=== PATIENT | female | born 1990 | race Caucasian/White ===

== ENCOUNTER 2017-02-21 07:39 | Observation (INO) | payer MEDICARE, MEDICAID ==
[~2017-02-21] VITALS: Ht 170.2 cm; Wt 72.0 kg
[~2017-02-21 07:39] MED LIST: DIVA-68 PO
[2017-02-21] MEDS ORDERED: LORazepam 1MG TABLET ONE (08:12)
[2017-02-21] MEDS ORDERED: LORazepam 1MG TABLET PO ONE (08:30)
[2017-02-21 08:44] LABS: ASPARTATE AMINO TRANSFERASE 17 U/L (15-37); BLOOD UREA NITROGEN 7 mg/dL (7-18)
[2017-02-21 08:47] LABS: ACETAMINOPHEN < 2 mcg/mL (10-30)
[2017-02-21 15:24] LABS: HCG UR OBC PASS
[2017-02-21 15:49] LABS: DAU SCREEN DISCLAIMER
[2017-02-21] MEDS ORDERED: ACETAMINOPHEN 325 MG TABLET PO PRN (19:00)
[2017-02-21] MEDS ORDERED: ZIPRASIDONE 20 MG INJ IM PRN (19:00)
[2017-02-21] MEDS ORDERED: OLANZAPINE 10 MG INJ IM PRN (19:00)
[2017-02-21] MEDS ORDERED: LORazepam 2 MG/ML, 1ML IM PRN (19:00)
[2017-02-21] MEDS ORDERED: NICOTINE 7 MG/24 HR PATCH.TD24 TD SCH (19:00)
[2017-02-21] MEDS ORDERED: LORazepam 1MG TABLET PO PRN (19:00)
[2017-02-21] MEDS: OLANZAPINE 5 MG TABLET PO SCH (22:32)
[2017-02-21 22:34] VITALS: BP 100/64
[2017-02-22 08:00] VITALS: BP 110/74
[2017-02-22] MEDS: OLANZAPINE 5 MG TABLET PO SCH (08:08)
== END 2017-02-22 16:30 ==
LOC: ED 08:48 → EDIP 12:19 → 3E 22:16
PROVIDERS: ADMIT Internal Medicine; ATTEND Internal Medicine
DX: F20.9 Schizophrenia, unspecified (principal); F22 Delusional disorders; F29 Unspecified psychosis not due to a substance or known physiological condition; F17.200 Nicotine dependence, unspecified, uncomplicated; Z81.8 Family history of other mental and behavioral disorders
CPT/HCPCS: 36415; 80053; 80307; 80329; 81025; 85025; 99285; G0378; G0480

== ENCOUNTER 2017-07-11 14:25 | Emergency (ER) | payer MEDICARE, MEDICAID ==
[~2017-07-11] VITALS: Ht 170.2 cm; Wt 77.0 kg
[2017-07-11 14:29] VITALS: BP 117/87
[2017-07-11] MEDS ORDERED: DIPHENHYDRAMINE 50 MG/ML, 1ML ONE (15:25)
[2017-07-11] MEDS ORDERED: DIPHENHYDRAMINE 50 MG/ML, 1ML IM ONE (15:30)
== END 2017-07-11 17:04 | disposition home or self-care (01) ==
LOC: ED 16:50
DX: R51 Headache (principal)
CPT/HCPCS: 96372; 99283; J1200

== ENCOUNTER 2017-07-28 12:45 | Emergency (ER) | payer MEDICARE, MEDICAID ==
[~2017-07-28] VITALS: Ht 170.2 cm; Wt 79.0 kg
[2017-07-28 13:08] VITALS: BP 119/78
[2017-07-28] MEDS ORDERED: ZIPRASIDONE 20 MG INJ IM ONE ×2 (13:26→13:30)
== END 2017-07-28 15:20 | disposition home or self-care (01) ==
LOC: ED 14:12
DX: F24 Shared psychotic disorder (principal); F20.9 Schizophrenia, unspecified; F15.10 Other stimulant abuse, uncomplicated
CPT/HCPCS: 96372; 99284; J3486

== ENCOUNTER 2017-07-31 13:24 | Emergency (ER) | payer MEDICARE, MEDICAID ==
[~2017-07-31] VITALS: Ht 170.2 cm; Wt 71.3 kg
[2017-07-31 13:35] VITALS: BP 106/71
[2017-07-31] MEDS ORDERED: ZIPRASIDONE 20 MG INJ IM ONE (15:00)
== END 2017-07-31 16:05 | disposition home or self-care (01) ==
LOC: ED 16:00
DX: F22 Delusional disorders (principal); R44.3 Hallucinations, unspecified; F15.10 Other stimulant abuse, uncomplicated; F17.210 Nicotine dependence, cigarettes, uncomplicated
CPT/HCPCS: 96372; 99284; J3486

== ENCOUNTER 2017-08-01 12:13 | Emergency (ER) | payer MEDICARE, MEDICAID ==
[~2017-08-01] VITALS: Ht 170.2 cm; Wt 70.4 kg
[2017-08-01 12:36] VITALS: BP 121/83
== END 2017-08-01 15:05 | disposition home or self-care (01) ==
LOC: ED 13:57
DX: F22 Delusional disorders (principal); F15.10 Other stimulant abuse, uncomplicated; F31.9 Bipolar disorder, unspecified
CPT/HCPCS: 99284

== ENCOUNTER 2017-08-15 17:12 | Emergency (ER) | payer MEDICARE, MEDICAID ==
[~2017-08-15] VITALS: Ht 170.2 cm; Wt 72.0 kg
[2017-08-15 17:47] VITALS: BP 118/63
[2017-08-15] MEDS ORDERED: DIPHENHYDRAMINE 12.5MG/5ML, 10ML UDC PO PRN (18:30)
[2017-08-15] MEDS ORDERED: DIPHENHYDRAMINE 12.5MG/5ML, 10ML UDC ONE (18:39)
== END 2017-08-15 19:36 | disposition home or self-care (01) ==
LOC: ED 18:45 → UNDOADMOB 19:03 → EDIP 19:03 → ED 19:36
DX: F25.0 Schizoaffective disorder, bipolar type (principal)
CPT/HCPCS: 99282

== ENCOUNTER 2017-08-23 13:30 | Emergency (ER) | payer MEDICARE, MEDICAID ==
[~2017-08-23] VITALS: Ht 170.2 cm; Wt 98.0 kg
[2017-08-23] MEDS ORDERED: ONDANSETRON ODT 4 MG PO ONE (14:30)
[2017-08-23 18:40] VITALS: BP 100/57
== END 2017-08-23 18:42 | disposition home or self-care (01) ==
LOC: ED 16:21
DX: F25.9 Schizoaffective disorder, unspecified (principal); F31.9 Bipolar disorder, unspecified
CPT/HCPCS: 99284

== ENCOUNTER 2017-09-10 11:06 | Emergency (ER) | payer MEDICARE, MEDICAID ==
[~2017-09-10] VITALS: Ht 170.2 cm; Wt 72.0 kg
[2017-09-10 11:09] VITALS: BP 124/86
== END 2017-09-10 13:32 | disposition home or self-care (01) ==
LOC: ED 13:25
DX: F20.3 Undifferentiated schizophrenia (principal); F17.200 Nicotine dependence, unspecified, uncomplicated; F41.1 Generalized anxiety disorder; F31.9 Bipolar disorder, unspecified
CPT/HCPCS: 99284

== ENCOUNTER 2017-09-21 13:01 | Emergency (ER) | payer MEDICARE, MEDICAID ==
[~2017-09-21] VITALS: Ht 170.2 cm; Wt 68.4 kg
[2017-09-21 13:18] VITALS: BP 115/81
[2017-09-21] MEDS ORDERED: DIPHENHYDRAMINE 50 MG/ML, 1ML IM ONE (14:30)
[2017-09-21] MEDS ORDERED: DIPHENHYDRAMINE 50 MG/ML, 1ML ONE (14:50)
== END 2017-09-21 16:24 | disposition home or self-care (01) ==
LOC: ED 15:10
DX: F20.89 Other schizophrenia (principal); F20.1 Disorganized schizophrenia; F31.9 Bipolar disorder, unspecified; R56.9 Unspecified convulsions; G89.29 Other chronic pain
CPT/HCPCS: 96372; 99284; J1200

== ENCOUNTER 2017-10-05 19:54 | Emergency (ER) | payer MEDICARE, MEDICAID ==
[~2017-10-05] VITALS: Ht 170.2 cm; Wt 66.4 kg
[2017-10-05 19:59] VITALS: BP 135/86
[2017-10-05 20:46] LABS: BASOPHILS # (AUTO) 0.05 x10^3/uL (0-0.1); BASOPHILS % (AUTO) 0 % (0-1); EOSINOPHILS % (AUTO) 1 % (1-7); LYMPHOCYTES % (AUTO) 15 % (22-44); MD NO; MEAN CORPUSCULAR HEMOGLOBIN 30.8 pg (27.0-34.8); MEAN CORPUSCULAR HGB CONC 33.6 g/dL (32.4-35.8); MEAN CORPUSCULAR VOLUME 91.8 fL (80-100); MEAN PLATELET VOLUME 7.8 fL (7.4-10.4); MONOCYTES # (AUTO) 0.56 x10^3/uL (0.2-0.8); MONOCYTES % (AUTO) 5 % (2-9); NEUTROPHILS % (AUTO) 79 % (42-75); PLATELET COUNT 339 x10^3/uL (130-400); RED BLOOD COUNT 5.11 x10^6/uL (3.82-5.3)
[2017-10-05] MEDS ORDERED: ZIPRASIDONE 20 MG INJ IM ONE ×2 (20:48→21:00)
[2017-10-05 20:57] LABS: ALBUMIN 4.1 g/dL (3.4-5.0); ANION GAP 7 mmol/L (5-15); CALCIUM 9.2 mg/dL (8.5-10.1); CHLORIDE 104 mmol/L (98-107); CREATININE 0.81 mg/dL (0.55-1.02)
[2017-10-05 20:59] LABS: ACETAMINOPHEN < 2 mcg/mL (10-30); SALICYLATE LEVEL < 1.7 mg/dL (2.8-20.0)
[2017-10-05 21:09] LABS: AMPHETAMINE SCREEN, URINE Positive (Negative); BARBITURATE SCREEN, URINE Negative (Negative); BENZODIAZEPINE SCREEN, URINE Negative (Negative); CANNABINOID SCREEN, URINE Negative (Negative); COCAINE SCREEN, URINE Negative (Negative); METHADONE SCREEN, URINE Negative (Negative); OPIATE SCREEN, URINE Negative (Negative)
== END 2017-10-05 21:54 | disposition home or self-care (01) ==
LOC: ED 21:13
DX: F25.9 Schizoaffective disorder, unspecified (principal); F15.10 Other stimulant abuse, uncomplicated; F31.9 Bipolar disorder, unspecified; Z72.9 Problem related to lifestyle, unspecified; Z75.9 Unspecified problem related to medical facilities and other health care; Z79.899 Other long term (current) drug therapy
CPT/HCPCS: 36415; 80048; 80307; 80329; 82040; 84703; 85025; 96372; 99284; J3486; G0480

== ENCOUNTER 2017-11-02 17:08 | Emergency (ER) | payer MEDICARE, MEDICAID ==
[~2017-11-02] VITALS: Ht 170.2 cm; Wt 71.9 kg
[2017-11-02] MEDS ORDERED: DIPHENHYDRAMINE 25 MG CAPSULE ONE (17:49)
[2017-11-02] MEDS ORDERED: DIPHENHYDRAMINE 25 MG CAPSULE PO PRN (18:00)
[2017-11-02 18:16] VITALS: BP 124/78
== END 2017-11-02 18:19 | disposition home or self-care (01) ==
LOC: ED 18:10
DX: F41.9 Anxiety disorder, unspecified (principal); F25.9 Schizoaffective disorder, unspecified; F31.9 Bipolar disorder, unspecified; Z88.8 Allergy status to other drugs, medicaments and biological substances
CPT/HCPCS: 99282; Q0163

== ENCOUNTER 2017-11-03 14:23 | Observation (INO) | payer MEDICARE, MEDICAID ==
[~2017-11-03] VITALS: Ht 170.2 cm; Wt 61.4 kg
[2017-11-03] MEDS ORDERED: ZIPRASIDONE 20 MG INJ IM ONE ×2 (14:40→15:00)
[2017-11-03 14:55] LABS: BASOPHILS # (AUTO) 0.08 x10^3/uL (0-0.1); BASOPHILS % (AUTO) 1 % (0-1); EOSINOPHILS # (AUTO) 0.08 x10^3/uL (0-0.4); EOSINOPHILS % (AUTO) 1 % (1-7); LYMPHOCYTES # (AUTO) 3.71 x10^3/uL (1-3.4); LYMPHOCYTES % (AUTO) 28 % (22-44); MD NO; MEAN CORPUSCULAR HEMOGLOBIN 30.4 pg (27.0-34.8); MEAN CORPUSCULAR HGB CONC 33.6 g/dL (32.4-35.8); MEAN CORPUSCULAR VOLUME 90.4 fL (80-100); MEAN PLATELET VOLUME 7.9 fL (7.4-10.4); MONOCYTES # (AUTO) 1.06 x10^3/uL (0.2-0.8); MONOCYTES % (AUTO) 8 % (2-9); NEUTROPHILS # (AUTO) 8.47 x10^3/uL (1.8-6.8); NEUTROPHILS % (AUTO) 63 % (42-75); PLATELET COUNT 301 x10^3/uL (130-400); RED BLOOD COUNT 4.35 x10^6/uL (3.82-5.3); RED CELL DISTRIBUTION WIDTH 13.9 % (9.6-15.2)
[2017-11-03 14:59] LABS: ALBUMIN 3.9 g/dL (3.4-5.0); ANION GAP 9 mmol/L (5-15); CALCIUM 8.7 mg/dL (8.5-10.1); CHLORIDE 105 mmol/L (98-107); CREATININE 0.75 mg/dL (0.55-1.02)
[2017-11-03 15:00] LABS: SALICYLATE LEVEL < 1.7 mg/dL (2.8-20.0)
[2017-11-03 15:08] LABS: ACETAMINOPHEN < 2 mcg/mL (10-30)
[2017-11-03 15:40] LABS: AMPHETAMINE SCREEN, URINE Positive (Negative); BARBITURATE SCREEN, URINE Negative (Negative); BENZODIAZEPINE SCREEN, URINE Negative (Negative); CANNABINOID SCREEN, URINE Negative (Negative); COCAINE SCREEN, URINE Negative (Negative); METHADONE SCREEN, URINE Negative (Negative); OPIATE SCREEN, URINE Negative (Negative)
[2017-11-03] MEDS ORDERED: ACETAMINOPHEN 325 MG TABLET PO PRN ×2 (16:30→19:30)
[2017-11-03] MEDS ORDERED: ONDANSETRON ODT 4 MG PO PRN (16:30)
[2017-11-03] MEDS ORDERED: NICOTINE 14MG/24 HR PATCH.TD24 ONE (16:41)
[2017-11-03] MEDS ORDERED: POTASSIUM CHLORIDE 20 MEQ TAB.ER.PRT ONE (16:42)
[2017-11-03] MEDS: POTASSIUM CHLORIDE 20 MEQ TAB.ER.PRT PO SCH (16:56)
[2017-11-03] MEDS: NICOTINE 14MG/24 HR PATCH.TD24 TD SCH (16:56)
[2017-11-04] MEDS ORDERED: LORazepam 2 MG/ML, 1ML ONE ×4 (03:25→19:43)
[2017-11-04] MEDS: LORazepam 2 MG/ML, 1ML IM PRN ×4 (03:28→20:21)
[2017-11-04 04:56] LABS: BASOPHILS # (AUTO) 0.05 x10^3/uL (0-0.1); BASOPHILS % (AUTO) 1 % (0-1); EOSINOPHILS # (AUTO) 0.29 x10^3/uL (0-0.4); EOSINOPHILS % (AUTO) 3 % (1-7); LYMPHOCYTES # (AUTO) 3.21 x10^3/uL (1-3.4); LYMPHOCYTES % (AUTO) 35 % (22-44); MD NO; MEAN CORPUSCULAR HEMOGLOBIN 30.5 pg (27.0-34.8); MEAN CORPUSCULAR HGB CONC 33.8 g/dL (32.4-35.8); MEAN CORPUSCULAR VOLUME 90.3 fL (80-100); MEAN PLATELET VOLUME 8.1 fL (7.4-10.4); MONOCYTES # (AUTO) 0.63 x10^3/uL (0.2-0.8); MONOCYTES % (AUTO) 7 % (2-9); NEUTROPHILS # (AUTO) 5.02 x10^3/uL (1.8-6.8); NEUTROPHILS % (AUTO) 55 % (42-75); PLATELET COUNT 312 x10^3/uL (130-400); RED BLOOD COUNT 4.72 x10^6/uL (3.82-5.3); RED CELL DISTRIBUTION WIDTH 13.7 % (9.6-15.2)
[2017-11-04 05:03] LABS: ANION GAP 7 mmol/L (5-15); CALCIUM 8.9 mg/dL (8.5-10.1); CHLORIDE 106 mmol/L (98-107)
[2017-11-04 05:06] LABS: CREATININE 0.71 mg/dL (0.55-1.02)
[2017-11-04] MEDS ORDERED: DIVALPROEX 500 MG TABLET.DR PO SCH (09:00)
[2017-11-04] MEDS ORDERED: ENOXAPARIN 40 MG/0.4 ML ONE (09:19)
[2017-11-04] MEDS ORDERED: POTASSIUM CHLORIDE 20 MEQ TAB.ER.PRT ONE (09:44)
[2017-11-04] MEDS: POTASSIUM CHLORIDE 20 MEQ TAB.ER.PRT PO SCH ×2 (09:53→20:00)
[2017-11-04] MEDS: ENOXAPARIN 40 MG/0.4 ML SQ SCH (10:16)
[2017-11-04 12:42] LABS: MICROSCOPIC INDICATED
[2017-11-04] MEDS ORDERED: NICOTINE 14MG/24 HR PATCH.TD24 ONE (17:54)
[2017-11-04] MEDS: NICOTINE 14MG/24 HR PATCH.TD24 TD SCH (17:57)
[2017-11-04] MEDS ORDERED: OLANZAPINE 5 MG TABLET PO STA (20:37)
[2017-11-04] MEDS ORDERED: LORazepam 1MG TABLET PO STA (20:37)
[2017-11-04] MEDS ORDERED: LORazepam 1MG TABLET ONE (20:52)
[2017-11-04] MEDS ORDERED: OLANZAPINE 5 MG TABLET ONE (20:52)
[2017-11-04] MEDS ORDERED: OLANZAPINE 5 MG TABLET PO PRN (21:00)
[2017-11-04] MEDS ORDERED: LORazepam 2 MG/ML, 1ML IM PRN (21:00)
[2017-11-04] MEDS: GABAPENTIN 100 MG CAPSULE PO SCH (22:30)
[2017-11-04] MEDS ORDERED: OLANZAPINE 10 MG INJ IM PRN (22:30)
[2017-11-04] MEDS: OLANZAPINE 10 MG TABLET PO SCH (22:45)
[2017-11-05] MEDS ORDERED: ENOXAPARIN 40 MG/0.4 ML ONE (13:34)
[2017-11-05] MEDS ORDERED: POTASSIUM CHLORIDE 20 MEQ TAB.ER.PRT ONE (13:35)
[2017-11-05] MEDS ORDERED: OLANZAPINE 10 MG TABLET ONE (13:35)
[2017-11-05] MEDS: ENOXAPARIN 40 MG/0.4 ML SQ SCH (13:43)
[2017-11-05] MEDS: OLANZAPINE 10 MG TABLET PO SCH ×2 (13:43→20:36)
[2017-11-05] MEDS: POTASSIUM CHLORIDE 20 MEQ TAB.ER.PRT PO SCH ×2 (13:44→17:42)
[2017-11-05] MEDS: GABAPENTIN 100 MG CAPSULE PO SCH ×3 (14:00→20:36)
[2017-11-05 17:23] VITALS: BP 83/46
[2017-11-05 19:29] VITALS: BP 102/68
[2017-11-06 07:00] VITALS: BP 103/63
[2017-11-06] MEDS: OLANZAPINE 10 MG TABLET PO SCH ×2 (09:42→20:56)
[2017-11-06] MEDS: GABAPENTIN 100 MG CAPSULE PO SCH ×3 (09:42→20:56)
[2017-11-06] MEDS: ENOXAPARIN 40 MG/0.4 ML SQ SCH (09:42)
[2017-11-06] MEDS: NICOTINE 14MG/24 HR PATCH.TD24 TD SCH (09:43)
[2017-11-06 20:16] VITALS: BP 99/70
[2017-11-07 08:00] VITALS: BP 95/64
[2017-11-07] MEDS: ENOXAPARIN 40 MG/0.4 ML SQ SCH (08:42)
[2017-11-07] MEDS: OLANZAPINE 10 MG TABLET PO SCH ×2 (08:43→20:41)
[2017-11-07] MEDS: GABAPENTIN 100 MG CAPSULE PO SCH ×3 (08:43→20:41)
[2017-11-07] MEDS: NICOTINE 14MG/24 HR PATCH.TD24 TD SCH (08:43)
[2017-11-07 20:14] VITALS: BP 112/77
[2017-11-08 07:03] VITALS: BP 103/69
[2017-11-08] MEDS: GABAPENTIN 100 MG CAPSULE PO SCH (08:34)
[2017-11-08] MEDS: NICOTINE 14MG/24 HR PATCH.TD24 TD SCH (08:35)
[2017-11-08] MEDS: ENOXAPARIN 40 MG/0.4 ML SQ SCH (08:35)
[2017-11-08] MEDS: OLANZAPINE 10 MG TABLET PO SCH (08:35)
== END 2017-11-08 14:47 ==
LOC: ED 15:37 → EDIP 15:38 → INTOOBSV 15:38 → ED 15:53 → 3E 11-05 17:24
PROVIDERS: ADMIT Internal Medicine Pulmonary Disease; ATTEND Hospitalist
DX: F29 Unspecified psychosis not due to a substance or known physiological condition (principal); E87.6 Hypokalemia; D72.829 Elevated white blood cell count, unspecified; F15.10 Other stimulant abuse, uncomplicated; F20.1 Disorganized schizophrenia; F17.200 Nicotine dependence, unspecified, uncomplicated; F31.9 Bipolar disorder, unspecified; F41.1 Generalized anxiety disorder; F99 Mental disorder, not otherwise specified
CPT/HCPCS: 36415; 71045; 80048; 80307; 80329; 81001; 82040; 84703; 85025; 96372; 99285; G0378; J1650; J2060; J3486; G0480

== ENCOUNTER 2017-12-16 11:01 | Emergency (ER) | payer MEDICARE, MEDICAID ==
[~2017-12-16] VITALS: Ht 165.1 cm; Wt 74.1 kg
[2017-12-16] MEDS ORDERED: HALOPERIDOL 5 MG/ML ONE (13:23)
[2017-12-16] MEDS ORDERED: LORazepam 1MG TABLET ONE (13:24)
[2017-12-16] MEDS ORDERED: LORazepam 1MG TABLET PO ONE (13:30)
[2017-12-16] MEDS ORDERED: HALOPERIDOL 5 MG/ML IM ONE (13:30)
[2017-12-16 15:17] VITALS: BP 128/63
== END 2017-12-16 15:32 | disposition home or self-care (01) ==
LOC: ED 12:00
DX: F15.251 Other stimulant dependence with stimulant-induced psychotic disorder with hallucinations (principal); F25.9 Schizoaffective disorder, unspecified; F31.9 Bipolar disorder, unspecified; F41.1 Generalized anxiety disorder
CPT/HCPCS: 96372; 99283; J1630

== ENCOUNTER 2018-01-20 00:42 | Emergency (ER) | payer MEDICARE, MEDICAID ==
[~2018-01-20] VITALS: Ht 172.7 cm; Wt 66.0 kg
[2018-01-20] MEDS ORDERED: LORazepam 1MG TABLET ONE (01:39)
[2018-01-20 01:52] LABS: BASOPHILS # (AUTO) 0.08 x10^3/uL (0-0.1); BASOPHILS % (AUTO) 1 % (0-1); EOSINOPHILS # (AUTO) 0.08 x10^3/uL (0-0.4); EOSINOPHILS % (AUTO) 1 % (1-7); LYMPHOCYTES # (AUTO) 2.74 x10^3/uL (1-3.4); LYMPHOCYTES % (AUTO) 29 % (22-44); MD NO; MEAN CORPUSCULAR HEMOGLOBIN 30.6 pg (27.0-34.8); MEAN CORPUSCULAR HGB CONC 33.5 g/dL (32.4-35.8); MEAN CORPUSCULAR VOLUME 91.3 fL (80-100); MONOCYTES # (AUTO) 0.55 x10^3/uL (0.2-0.8); MONOCYTES % (AUTO) 6 % (2-9); NEUTROPHILS # (AUTO) 6.01 x10^3/uL (1.8-6.8); NEUTROPHILS % (AUTO) 64 % (42-75); PLATELET COUNT 389 x10^3/uL (130-400); RED BLOOD COUNT 4.62 x10^6/uL (3.82-5.3); RED CELL DISTRIBUTION WIDTH 12.7 % (9.6-15.2)
[2018-01-20] MEDS ORDERED: LORazepam 2 MG/ML, 1ML IVPush ONE (02:00)
[2018-01-20 02:03] LABS: ALANINE AMINOTRANSFERASE 23 U/L (12-78); ALBUMIN 4.1 g/dL (3.4-5.0); ANION GAP 8 mmol/L (5-15); CALCIUM 9.2 mg/dL (8.5-10.1); CHLORIDE 108 mmol/L (98-107); CREATININE 0.85 mg/dL (0.55-1.02); SALICYLATE LEVEL 2.4 mg/dL (2.8-20.0)
[2018-01-20 02:05] LABS: ALKALINE PHOSPHATASE 74 U/L (45-117); BILIRUBIN,TOTAL 0.4 mg/dL (0.2-1.0); TOTAL PROTEIN 8.3 g/dL (6.4-8.2)
[2018-01-20 02:08] LABS: ACETAMINOPHEN < 2 mcg/mL (10-30)
[2018-01-20 02:20] LABS: HCG UR SG 1.025 (1.003-1.030)
[2018-01-20 02:30] LABS: AMPHETAMINE SCREEN, URINE Positive (Negative); BARBITURATE SCREEN, URINE Negative (Negative); BENZODIAZEPINE SCREEN, URINE Negative (Negative); CANNABINOID SCREEN, URINE Positive (Negative); COCAINE SCREEN, URINE Negative (Negative); METHADONE SCREEN, URINE Negative (Negative); OPIATE SCREEN, URINE Negative (Negative)
[2018-01-20] MEDS ORDERED: ZIPRASIDONE 20MG CAPSULE ONE (02:44)
[2018-01-20] MEDS ORDERED: ZIPRASIDONE 20MG CAPSULE PO ONE (03:00)
[2018-01-20 03:33] VITALS: BP 114/72
== END 2018-01-20 03:36 | disposition home or self-care (01) ==
LOC: ED 03:30
DX: F15.159 Other stimulant abuse with stimulant-induced psychotic disorder, unspecified (principal); F22 Delusional disorders; F20.9 Schizophrenia, unspecified; F41.9 Anxiety disorder, unspecified; F25.9 Schizoaffective disorder, unspecified; Z79.899 Other long term (current) drug therapy
CPT/HCPCS: 36415; 80053; 80307; 80329; 81025; 85025; 96374; 99284; J2060; G0480

== ENCOUNTER 2018-02-05 17:25 | Emergency (ER) | payer MEDICAID, MEDICARE ==
[~2018-02-05] VITALS: Ht 172.7 cm; Wt 68.5 kg
[2018-02-05 17:27] VITALS: BP 117/79
[2018-02-05 18:51] LABS: BASOPHILS # (AUTO) 0.03 x10^3/uL (0-0.1); BASOPHILS % (AUTO) 0 % (0-1); EOSINOPHILS # (AUTO) 0.18 x10^3/uL (0-0.4); EOSINOPHILS % (AUTO) 2 % (1-7); LYMPHOCYTES # (AUTO) 2.82 x10^3/uL (1-3.4); LYMPHOCYTES % (AUTO) 29 % (22-44); MD NO; MEAN CORPUSCULAR HEMOGLOBIN 30.2 pg (27.0-34.8); MEAN CORPUSCULAR HGB CONC 33.4 g/dL (32.4-35.8); MEAN CORPUSCULAR VOLUME 90.6 fL (80-100); MEAN PLATELET VOLUME 8.3 fL (7.4-10.4); MONOCYTES # (AUTO) 0.67 x10^3/uL (0.2-0.8); MONOCYTES % (AUTO) 7 % (2-9); NEUTROPHILS # (AUTO) 6.17 x10^3/uL (1.8-6.8); NEUTROPHILS % (AUTO) 63 % (42-75); PLATELET COUNT 317 x10^3/uL (130-400); RED BLOOD COUNT 4.85 x10^6/uL (3.82-5.3); RED CELL DISTRIBUTION WIDTH 12.3 % (9.6-15.2)
[2018-02-05 18:53] LABS: AMPHETAMINE SCREEN, URINE Positive (Negative); BARBITURATE SCREEN, URINE Negative (Negative); BENZODIAZEPINE SCREEN, URINE Negative (Negative); CANNABINOID SCREEN, URINE Negative (Negative); COCAINE SCREEN, URINE Negative (Negative); METHADONE SCREEN, URINE Negative (Negative); OPIATE SCREEN, URINE Negative (Negative)
[2018-02-05 19:02] LABS: ALBUMIN 3.6 g/dL (3.4-5.0); ANION GAP 6 mmol/L (5-15); CHLORIDE 106 mmol/L (98-107); CREATININE 0.63 mg/dL (0.55-1.02)
[2018-02-05 19:05] LABS: SALICYLATE LEVEL 5.7 mg/dL (2.8-20.0)
[2018-02-05 19:06] LABS: ACETAMINOPHEN < 2 mcg/mL (10-30)
== END 2018-02-05 20:01 | disposition home or self-care (01) ==
LOC: ED 17:46
DX: F15.959 Other stimulant use, unspecified with stimulant-induced psychotic disorder, unspecified (principal); F31.9 Bipolar disorder, unspecified; Z79.899 Other long term (current) drug therapy
CPT/HCPCS: 36415; 80048; 80307; 80329; 82040; 84703; 85025; 99284; G0480

== ENCOUNTER 2018-03-09 17:26 | Emergency (ER) | payer SELFPAY ==
[~2018-03-09] VITALS: Ht 172.7 cm; Wt 77.9 kg
[~2018-03-09 17:26] MED LIST changes: +DIVA-61 PO; -DIVA-68 PO
[2018-03-09 18:09] LABS: BASOPHILS # (AUTO) 0.02 x10^3/uL (0-0.1); BASOPHILS % (AUTO) 0 % (0-1); EOSINOPHILS # (AUTO) 0.06 x10^3/uL (0-0.4); EOSINOPHILS % (AUTO) 1 % (1-7); LYMPHOCYTES # (AUTO) 2.18 x10^3/uL (1-3.4); LYMPHOCYTES % (AUTO) 18 % (22-44); MD NO; MEAN CORPUSCULAR HGB CONC 33.7 g/dL (32.4-35.8); MEAN CORPUSCULAR VOLUME 88.9 fL (80-100); MEAN PLATELET VOLUME 8.1 fL (7.4-10.4); MONOCYTES # (AUTO) 0.58 x10^3/uL (0.2-0.8); MONOCYTES % (AUTO) 5 % (2-9); NEUTROPHILS # (AUTO) 9.27 x10^3/uL (1.8-6.8); NEUTROPHILS % (AUTO) 77 % (42-75); PLATELET COUNT 316 x10^3/uL (130-400); RED CELL DISTRIBUTION WIDTH 13.9 % (9.6-15.2)
[2018-03-09 18:16] LABS: ALBUMIN 4.1 g/dL (3.4-5.0); ANION GAP 7 mmol/L (5-15); CALCIUM 10.1 mg/dL (8.5-10.1); CHLORIDE 105 mmol/L (98-107); CREATININE 0.85 mg/dL (0.55-1.02)
[2018-03-09] MEDS ORDERED: LORazepam 2 MG/ML, 1ML IVPush ONE (18:30)
[2018-03-09] MEDS ORDERED: SODIUM CHLORIDE 0.9% 1,000ML IVBOLUS ONE ×2 (18:30→20:30)
[2018-03-09] MEDS ORDERED: SODIUM CHLORIDE FLUSH 10ML SYR IVF ONE (18:30)
[2018-03-09] MEDS ORDERED: LORazepam 2 MG/ML, 1ML ONE ×2 (18:41→21:46)
[2018-03-09 19:52] LABS: CULTURE INDICATED? YES; MICROSCOPIC INDICATED
[2018-03-09] MEDS ORDERED: LORazepam 2 MG/ML, 1ML IVPush STA (21:33)
[2018-03-09] MEDS ORDERED: metroNIDAZOLE 500 MG TABLET ONE ×2 (21:47→21:52)
[2018-03-09] MEDS ORDERED: metroNIDAZOLE 500 MG TABLET PO ONE (22:00)
[2018-03-09 23:00] VITALS: BP 134/83
[2018-03-10] MEDS ORDERED: GEODON (11:55)
[2018-03-10] MEDS ORDERED: ZYPREXA (11:55)
== END 2018-03-09 23:37 | disposition home or self-care (01) ==
LOC: ED 20:20
DX: F29 Unspecified psychosis not due to a substance or known physiological condition (principal); A59.03 Trichomonal cystitis and urethritis; F22 Delusional disorders; F20.9 Schizophrenia, unspecified; F15.10 Other stimulant abuse, uncomplicated; F17.200 Nicotine dependence, unspecified, uncomplicated; R82.99 Other abnormal findings in urine
CPT/HCPCS: 36415; 80048; 81001; 82040; 84703; 85025; 87086; 96374; 96376; 99285; J2060; J7030

== ENCOUNTER 2018-03-10 10:34 | Emergency (ER) | payer SELFPAY ==
[~2018-03-10] VITALS: Ht 167.6 cm; Wt 64.0 kg
[2018-03-10] MEDS ORDERED: ZYPREXA (11:55)
[2018-03-10] MEDS ORDERED: GEODON (11:55)
[2018-03-10 13:31] VITALS: BP 131/80
== END 2018-03-10 13:33 | disposition home or self-care (01) ==
LOC: ED 10:39
DX: G89.11 Acute pain due to trauma (principal); M25.561 Pain in right knee; M25.571 Pain in right ankle and joints of right foot; M25.562 Pain in left knee; M25.572 Pain in left ankle and joints of left foot; F23 Brief psychotic disorder; F22 Delusional disorders; W19.XXXA Unspecified fall, initial encounter; Y93.89 Activity, other specified; Y92.410 Unspecified street and highway as the place of occurrence of the external cause; Y99.8 Other external cause status
CPT/HCPCS: 93005; 99284

== ENCOUNTER 2018-03-10 14:25 | Emergency (ER) | payer SELFPAY ==
[~2018-03-10] VITALS: Ht 172.7 cm; Wt 80.0 kg
[~2018-03-10 14:25] MED LIST changes: +GEODON; +ZYPREXA
[2018-03-10] MEDS ORDERED: ACETAMINOPHEN 325 MG TABLET ONE (19:19)
[2018-03-10] MEDS ORDERED: ACETAMINOPHEN 325 MG TABLET PO ONE (19:30)
[2018-03-10 20:44] VITALS: BP 129/95
== END 2018-03-10 20:47 | disposition home or self-care (01) ==
LOC: ED 14:52
DX: F29 Unspecified psychosis not due to a substance or known physiological condition (principal); F17.210 Nicotine dependence, cigarettes, uncomplicated
CPT/HCPCS: 82962; 99283; 99406

== ENCOUNTER 2018-03-14 11:57 | Emergency (ER) | payer SELFPAY ==
[~2018-03-14] VITALS: Ht 180.3 cm; Wt 74.0 kg
[2018-03-14 12:00] VITALS: BP 132/90
== END 2018-03-14 13:53 | disposition home or self-care (01) ==
LOC: ED 12:19
DX: F15.951 Other stimulant use, unspecified with stimulant-induced psychotic disorder with hallucinations (principal); F15.950 Other stimulant use, unspecified with stimulant-induced psychotic disorder with delusions; F31.9 Bipolar disorder, unspecified; M79.672 Pain in left foot; M79.671 Pain in right foot; F25.9 Schizoaffective disorder, unspecified
CPT/HCPCS: 99284

== ENCOUNTER 2018-03-27 20:42 | Emergency (ER) | payer MEDICARE ==
[~2018-03-27] VITALS: Ht 180.3 cm; Wt 65.0 kg
[2018-03-27 20:49] VITALS: BP 110/72
[2018-03-27] MEDS ORDERED: ZIPRASIDONE 20MG CAPSULE ONE (21:19)
[2018-03-27] MEDS ORDERED: ZIPRASIDONE 20MG CAPSULE PO ONE (21:30)
== END 2018-03-27 21:58 | disposition home or self-care (01) ==
LOC: ED 21:52
DX: F15.951 Other stimulant use, unspecified with stimulant-induced psychotic disorder with hallucinations (principal); F31.9 Bipolar disorder, unspecified; F25.9 Schizoaffective disorder, unspecified
CPT/HCPCS: 99284

== ENCOUNTER 2018-03-28 11:32 | Emergency (ER) | payer MEDICARE ==
[~2018-03-28] VITALS: Ht 180.3 cm; Wt 74.4 kg
[2018-03-28 11:37] VITALS: BP 130/80
== END 2018-03-28 14:33 | disposition left against medical advice (07) ==
LOC: ED 14:27
DX: M79.604 Pain in right leg (principal); Z53.21 Procedure and treatment not carried out due to patient leaving prior to being seen by health care provider

== ENCOUNTER 2019-07-04 06:40 | Emergency (ER) | payer MEDICARE, MEDICAID ==
[~2019-07-04] VITALS: Ht 172.7 cm; Wt 89.4 kg
[2019-07-04 06:47] VITALS: BP 130/88
[2019-07-04] MEDS ORDERED: RISPERDAL (07:06)
[2019-07-04] MEDS ORDERED: BENZTROPINE (07:06)
--- NOTE | 2019-07-04 07:28 | NUR ---
PT TO ED FOR BREAST AND PELVIC EXAM. PT STATES SOMEONE, CAN'T RECALL WHO OR WHEN, BUT AT AROUND 4 YEARS OLD, INJECTED "A FEW DROPS OF SILICON OR ESTROGEN INTO EACH BREAST" AND WANTS IT REMOVED. 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 UNABLE TO DETERMINE PTS TRUE EMERGENCY OR REQUEST. CAMPBELL SAINZ TO BS FOR ASSESSMENT AWAITING ORDERS.
== END 2019-07-04 07:49 | disposition home or self-care (01) ==
LOC: MERGE 07:34 → ED 07:34
DX: F22 Delusional disorders (principal); F20.9 Schizophrenia, unspecified
CPT/HCPCS: 99284

== ENCOUNTER 2019-07-06 15:02 | Emergency (ER) | payer MEDICARE, MEDICAID ==
[~2019-07-06] VITALS: Ht 172.7 cm; Wt 88.6 kg
[~2019-07-06 15:02] MED LIST changes: +BENZTROPINE; +RISPERDAL
--- NOTE | 2019-07-06 16:18 | NUR ---
CHARLEY ANNE AT BEDSIDE FOR EVALUATION
[2019-07-06 16:46] LABS: BASOPHILS # (AUTO) 0.04 x10^3/uL (0-0.1); BASOPHILS % (AUTO) 0 % (0-1); EOSINOPHILS % (AUTO) 4 % (1-7); LYMPHOCYTES # (AUTO) 2.76 x10^3/uL (1-3.4); LYMPHOCYTES % (AUTO) 27 % (22-44); MD NO; MEAN CORPUSCULAR HEMOGLOBIN 30.3 pg (27.0-34.8); MEAN CORPUSCULAR HGB CONC 32.8 g/dL (32.4-35.8); MEAN CORPUSCULAR VOLUME 92.4 fL (80-100); MEAN PLATELET VOLUME 8.5 fL (7.4-10.4); MONOCYTES # (AUTO) 0.64 x10^3/uL (0.2-0.8); MONOCYTES % (AUTO) 6 % (2-9); NEUTROPHILS # (AUTO) 6.38 x10^3/uL (1.8-6.8); NEUTROPHILS % (AUTO) 63 % (42-75); PLATELET COUNT 333 x10^3/uL (130-400); RED BLOOD COUNT 4.43 x10^6/uL (3.82-5.3); RED CELL DISTRIBUTION WIDTH 13.8 % (9.6-15.2)
[2019-07-06 16:46] LABS: AMPHETAMINE SCREEN, URINE Positive (Negative); BARBITURATE SCREEN, URINE Negative (Negative); BENZODIAZEPINE SCREEN, URINE Negative (Negative); CANNABINOID SCREEN, URINE Negative (Negative); COCAINE SCREEN, URINE Negative (Negative); METHADONE SCREEN, URINE Negative (Negative); OPIATE SCREEN, URINE Negative (Negative)
[2019-07-06 16:55] LABS: ALBUMIN 3.8 g/dL (3.4-5.0); ANION GAP 6 mmol/L (5-15); CALCIUM 9.5 mg/dL (8.5-10.1); CHLORIDE 105 mmol/L (98-107)
[2019-07-06 16:57] LABS: SALICYLATE LEVEL < 1.7 mg/dL (2.8-20.0)
[2019-07-06 16:58] LABS: ALANINE AMINOTRANSFERASE 20 U/L (12-78); ALKALINE PHOSPHATASE 68 U/L (45-117); BILIRUBIN,TOTAL 0.8 mg/dL (0.2-1.0); CREATININE 0.78 mg/dL (0.55-1.02); TOTAL PROTEIN 7.8 g/dL (6.4-8.2)
--- NOTE | 2019-07-06 17:35 | NUR ---
SNACK OFFERED, NO COMPLAINTS AT THIS TIME, RESTING IN BED
--- NOTE | 2019-07-06 18:43 | NUR ---
REPORT TO JA ARCE
--- NOTE | 2019-07-06 19:09 | NUR ---
PT REQUESTING TO LEAVE. PT NOT SI/HI. PT AOX4. PT HAS PAPERWORK FOR PSYCH AND DRUG REHAB ALREADY. MD INFORMED. PT TBDC
[2019-07-06 19:13] VITALS: BP 119/74
== END 2019-07-06 19:15 | disposition home or self-care (01) ==
LOC: ED 16:36
DX: F20.9 Schizophrenia, unspecified (principal); F22 Delusional disorders
CPT/HCPCS: 36415; 80053; 80307; 85025; 99283

== ENCOUNTER 2019-07-26 19:34 | Emergency (ER) | payer MEDICARE, MEDICAID ==
[~2019-07-26] VITALS: Ht 172.7 cm; Wt 88.8 kg
[2019-07-26 19:42] VITALS: BP 133/85
--- NOTE | 2019-07-26 20:04 | NUR ---
PT IN ROOM AT THIS TIME. PT DENIES ANY SUICIDAL/HOMICIDAL THOUGHTS OR IDEAS. PT HAS FLIGHT OF IDEAS. LOOSE ASSOCIATION OF IDEAS. PROVIDER IN ROOM
== END 2019-07-26 20:38 | disposition home or self-care (01) ==
LOC: ED 20:32
DX: F15.10 Other stimulant abuse, uncomplicated (principal); F41.1 Generalized anxiety disorder; Z00.00 Encounter for general adult medical examination without abnormal findings
CPT/HCPCS: 99281

== ENCOUNTER 2019-07-27 01:22 | Emergency (ER) | payer MEDICARE, MEDICAID ==
[~2019-07-27] VITALS: Ht 172.7 cm; Wt 88.0 kg
[2019-07-27 01:26] VITALS: BP 141/86
== END 2019-07-27 02:28 | disposition home or self-care (01) ==
LOC: ED 01:54
DX: F15.959 Other stimulant use, unspecified with stimulant-induced psychotic disorder, unspecified (principal)
CPT/HCPCS: 99281

== ENCOUNTER 2019-12-26 17:23 | Emergency (ER) | payer MEDICARE, MEDICAID ==
[~2019-12-26] VITALS: Ht 172.7 cm; Wt 90.0 kg
[~2019-12-26 17:23] MED LIST changes: +BENZ1TAB61 PO; +CLON-364 PO; +PALI234D IM; +TRAZ-175 PO
[2019-12-26 17:28] VITALS: BP 124/66
== END 2019-12-26 18:20 | disposition home or self-care (01) ==
LOC: ED 18:00
DX: F15.159 Other stimulant abuse with stimulant-induced psychotic disorder, unspecified (principal); F17.200 Nicotine dependence, unspecified, uncomplicated
CPT/HCPCS: 99281

== ENCOUNTER 2020-02-12 01:53 | Emergency (ER) | payer MEDICARE, MEDICAID ==
[~2020-02-12] VITALS: Ht 172.7 cm; Wt 83.1 kg
--- NOTE | 2020-02-12 02:18 | NUR ---
FIRST CONTACT WITH PT: PT SITTING UP IN [facility] WITH A NOTEPAD. PT STATES THEY "DONT KNOW WHY I AM HERE." PT SPEECH IS RUSHED AND THOUGHTS ARE NOT LINEAR. WORD SALAD NOTED. PT ADMITS TO TAKING METH AND SPEED TODAY. PT STATES "I LIKE THIS PERSON AND NOW I AM JUST ALWAYS THINKING ABOUT THEM, THERES NOTHING ELSE I CAN THINK ABOUT, HAVE YOU HEARD OF THE BESOS WEREWOLF? WELL I TOOK THE PILL FROM THEM AND NOW NEED A STEROID." PT P/W/D, VSS, NAD, APPEARS COMFORTABLE, GIVEN WARM BLANKETS FOR COMFORT. JUSTIN HARRIS AT FOR EVAL AND POC. PT PLACED ON BP, SPO2 MONITORING
[2020-02-12] MEDS ORDERED: LORazepam 1MG TABLET ONE (02:25)
[2020-02-12] MEDS ORDERED: LORazepam 1MG TABLET PO ONE (02:30)
--- NOTE | 2020-02-12 02:30 | NUR ---
PT MEDICATED PER MAR, RESTING IN [facility], DENIES ADDITIONAL NEEDS AT THIS TIME. WCTM.
[2020-02-12 02:37] VITALS: BP 120/82
--- NOTE | 2020-02-12 03:11 | NUR ---
Patient given discharge instructions and they have confirmed that they understand the instructions. Patient ambulatory with steady gait. DENIES ADDITIONAL QUESTIONS OR NEEDS AT THIS TIME. NO BELONGINGS LEFT IN ROOM AT TIME OF DC.
== END 2020-02-12 03:12 | disposition home or self-care (01) ==
LOC: ED 02:58
DX: F15.10 Other stimulant abuse, uncomplicated (principal); F17.210 Nicotine dependence, cigarettes, uncomplicated
CPT/HCPCS: 99283; 99406

== ENCOUNTER 2020-02-14 02:08 | Emergency (ER) | payer MEDICARE, MEDICAID ==
[~2020-02-14] VITALS: Ht 172.7 cm; Wt 83.0 kg
--- NOTE | 2020-02-14 02:40 | NUR ---
LATE ENTRY: BEDSIDE REPORT FROM SARAH RN, AMOL RN. FIRST PT CONTACT: PT LAYING FLAT ON DONISRAZIZA, PT STATES COMING HERE BECAUSE SHES TRYING TO GET SWOLE PT SKIN P/W/D, NAD, VSS, APPEARS COMFORTABLE. TO THIS RN PT STATES SHES HERE BECAUSE SHES TRYING TO BECOME AN PIPELINE DISPATCHER. PT TOLD RN SHE WANTED TO SHOW HER, HER MEDICAL JOURNAL, PT SHOWED RN MAGAZINE COVER. WCTM. PALCED ON BP/SPO2 MONITORING.
[2020-02-14] MEDS ORDERED: LORazepam 1MG TABLET PO ONE (03:00)
[2020-02-14] MEDS ORDERED: LORazepam 1MG TABLET ONE (03:15)
[2020-02-14 03:18] LABS: BASOPHILS # (AUTO) 0.05 x10^3/uL (0-0.1); BASOPHILS % (AUTO) 1 % (0-1); EOSINOPHILS # (AUTO) 0.17 x10^3/uL (0-0.4); EOSINOPHILS % (AUTO) 2 % (1-7); LYMPHOCYTES # (AUTO) 2.54 x10^3/uL (1-3.4); LYMPHOCYTES % (AUTO) 30 % (22-44); MD NO; MEAN CORPUSCULAR HEMOGLOBIN 29.8 pg (27.0-34.8); MEAN CORPUSCULAR HGB CONC 33.6 g/dL (32.4-35.8); MEAN CORPUSCULAR VOLUME 88.8 fL (80-100); MEAN PLATELET VOLUME 8.3 fL (7.4-10.4); MONOCYTES # (AUTO) 0.46 x10^3/uL (0.2-0.8); MONOCYTES % (AUTO) 6 % (2-9); NEUTROPHILS # (AUTO) 5.19 x10^3/uL (1.8-6.8); NEUTROPHILS % (AUTO) 62 % (42-75); PLATELET COUNT 313 x10^3/uL (130-400); RED BLOOD COUNT 4.65 x10^6/uL (3.82-5.3); RED CELL DISTRIBUTION WIDTH 13.4 % (9.6-15.2)
[2020-02-14 03:22] LABS: ALANINE AMINOTRANSFERASE 15 U/L (12-78); ALBUMIN 3.9 g/dL (3.4-5.0); ANION GAP 8 mmol/L (5-15); CALCIUM 8.8 mg/dL (8.5-10.1); CHLORIDE 106 mmol/L (98-107); SALICYLATE LEVEL 2.9 mg/dL (2.8-20.0)
--- NOTE | 2020-02-14 03:27 | NUR ---
PT AMBULATED TO AND FROM BATHROOM WITH A SMOOTH AND STEADY GAIT. UA COLLECTED ADN WALKED TO LAB. PT NAD, VSS, WCTM. WAITING FOR RESULTS
[2020-02-14 03:28] LABS: ALKALINE PHOSPHATASE 60 U/L (45-117); BILIRUBIN,TOTAL 0.3 mg/dL (0.2-1.0); CREATININE 0.79 mg/dL (0.55-1.02); TOTAL PROTEIN 7.6 g/dL (6.4-8.2)
[2020-02-14 03:44] LABS: MICROSCOPIC NOT IND
[2020-02-14 03:47] LABS: FREE T4 (FREE THYROXINE) 1.05 ng/dL (0.76-1.46)
[2020-02-14 03:57] LABS: AMPHETAMINE SCREEN, URINE Positive (Negative); BARBITURATE SCREEN, URINE Negative (Negative); BENZODIAZEPINE SCREEN, URINE Negative (Negative); CANNABINOID SCREEN, URINE Negative (Negative); COCAINE SCREEN, URINE Positive (Negative); METHADONE SCREEN, URINE Negative (Negative); OPIATE SCREEN, URINE Negative (Negative)
--- NOTE | 2020-02-14 04:09 | NUR ---
MT: Telepsych consult initiated.
--- NOTE | 2020-02-14 04:19 | NUR ---
pt sitting on [facility]. states "i need to be home at a certain time," RN informed pt that she needs to stay for her consult for telepsych. pt condition unchanged. VIKA. NAD.
--- NOTE | 2020-02-14 05:32 | NUR ---
pt resting supine on gurney, declines warm blankets at this time. NAD. VSS. P/W/D. WCTM. waiting for psych results.
[2020-02-14 06:44] VITALS: BP 109/71
--- NOTE | 2020-02-14 06:45 | NUR ---
PT LAYING PRONE ON GURNEY, PROPPED UP ON ELBOWS. NO CHANGE IN CONDITION, NAD, VSS. WCTM. PT STATES "I WANNA GO HOME I WAS SUPPOSED TO GO HOME AWHILE AGO." RN INFORMED PT THAT WE ARE WAITING FOR PSYCH CONSULT RESULTS.
--- NOTE | 2020-02-14 06:56 | NUR ---
pt placed on legal hold. pt changed out of belonging (pants, underwear, shoes, sports bra, hat, shirt, pen) all placed in 1/1 bags in locker. pt resting on gutoni, SI precautions in place in room, sitter in line of sight, NAD, P/W/D. pt still having a flight of ideas. Bedside report given to Bernadette ARCE, pt care transferred at this time.
--- NOTE | 2020-02-14 07:03 | NUR ---
assuming pt care at this time. PT RESTING ON GURNEY. NADN. RESPS EQUAL AND UNLABORED. ALL SAFETY MEASURES OBTAINED. SITTER OUTSIDE ROOM.
--- NOTE | 2020-02-14 08:27 | NUR ---
DIET TRAY DELIVERED. NADN. NO NEEDS REQUSTED AT THIS TIME. ALL SAFETY MEASURES OBTAINED.
--- NOTE | 2020-02-14 09:39 | NUR ---
PT CONTINUES TO REST ON GURAZIZA. NADN. RESPS EQUAL AND UNLABORED. ALL SAFETY MEASURES OBTAINED. SITTER AT DOORWAY. PT WITHIN FULL VIEW. WCTM
--- NOTE | 2020-02-14 12:35 | NUR ---
LATE ENTRY FOR 1100 PT CONTINUES TO SLEEP ON GURNEY. NADN. RESPS EQUAL AND UNLABORED. ALL SAFETY ISSUES OBTAINED.
--- NOTE | 2020-02-14 12:35 | NUR ---
REPORT TO CLAUDE ESCOBAR. ALL QUESTIONS ANSWERED.
--- NOTE | 2020-02-14 12:46 | NUR ---
PT TRANSFERRED TO FLOOR. PT LEFT WITH ALL PERSONAL BELONGINGS.
== END 2020-02-14 12:48 ==
LOC: ED 02:45
DX: F15.150 Other stimulant abuse with stimulant-induced psychotic disorder with delusions (principal); F14.10 Cocaine abuse, uncomplicated; Z72.9 Problem related to lifestyle, unspecified; R00.0 Tachycardia, unspecified; F20.9 Schizophrenia, unspecified
CPT/HCPCS: 36415; 80053; 80307; 81003; 84439; 84443; 84703; 85025; 99285

== ENCOUNTER 2020-03-04 16:36 | Emergency (ER) | payer MEDICAID, MEDICARE ==
[~2020-03-04] VITALS: Ht 172.7 cm; Wt 81.0 kg
[~2020-03-04 16:36] MED LIST changes: +ARIP10TA33 PO; +TRAZ50TA66 PO; +ZIPR40CA2 PO
--- NOTE | 2020-03-04 17:00 | NUR ---
PT REPORTS WANTING TO BE ADDRESSED A MALE, SEEKING TO GET SURGERY. PT MAKING INCOHERENT STATEMENTS, FLIGHT OF IDEAS AND WORD SALAD. PT IN BED WITH CON SPO2, BP Q 30 MIN, SIDE RAILS UP X2, CALL LIGHT IN REACH. AWATING MD TO SEE.
[2020-03-04 18:05] VITALS: BP 124/74
== END 2020-03-04 18:08 | disposition home or self-care (01) ==
LOC: ED 17:50
DX: Z72.9 Problem related to lifestyle, unspecified (principal); Z76.0 Encounter for issue of repeat prescription; F17.210 Nicotine dependence, cigarettes, uncomplicated
CPT/HCPCS: 99281; 99406

== ENCOUNTER 2020-03-11 15:23 | Emergency (ER) | payer MEDICARE ==
[~2020-03-11] VITALS: Ht 172.7 cm; Wt 80.5 kg
--- NOTE | 2020-03-11 16:03 | NUR ---
AUTOMATIC PUNCH PRESS OPERATOR: PT SITTING IN CHAIR ON THE WALL AWAITING ROOM, CALM AND COOPERATIVE
--- NOTE | 2020-03-11 16:18 | NUR ---
BEHAVIORAL HEALTH CLINICIAN: UMER ORTIZ TO EVALUATED PATIENT
--- NOTE | 2020-03-11 16:27 | NUR ---
LAUNDRY ROUTE DRIVER: PT GOING TO BE ON LEGAL 1999, PT MOVED TO SECURED ROOM 1
[2020-03-11] MEDS ORDERED: ZIPRASIDONE 40MG CAPSULE PO SCH (16:30)
--- NOTE | 2020-03-11 16:41 | NUR ---
SAFETY PRECAUTIONS IN PLACE, BELONGINGS IN LOCKER
[2020-03-11] MEDS ORDERED: BENZTROPINE 1 MG TABLET ONE (16:44)
[2020-03-11] MEDS ORDERED: ZIPRASIDONE 20MG CAPSULE ONE (16:44)
--- NOTE | 2020-03-11 17:18 | NUR ---
ermd law at bedside for evaluation.
[2020-03-11 17:25] LABS: BASOPHILS # (AUTO) 0.04 x10^3/uL (0-0.1); BASOPHILS % (AUTO) 0 % (0-1); EOSINOPHILS # (AUTO) 0.43 x10^3/uL (0-0.4); EOSINOPHILS % (AUTO) 4 % (1-7); LYMPHOCYTES # (AUTO) 2.46 x10^3/uL (1-3.4); LYMPHOCYTES % (AUTO) 21 % (22-44); MD NO; MEAN CORPUSCULAR HEMOGLOBIN 29.4 pg (27.0-34.8); MEAN CORPUSCULAR VOLUME 89.4 fL (80-100); MEAN PLATELET VOLUME 8.2 fL (7.4-10.4); MONOCYTES # (AUTO) 0.76 x10^3/uL (0.2-0.8); MONOCYTES % (AUTO) 7 % (2-9); NEUTROPHILS # (AUTO) 7.84 x10^3/uL (1.8-6.8); NEUTROPHILS % (AUTO) 68 % (42-75); PLATELET COUNT 324 x10^3/uL (130-400); RED BLOOD COUNT 4.52 x10^6/uL (3.82-5.3); RED CELL DISTRIBUTION WIDTH 13.6 % (9.6-15.2)
[2020-03-11 17:26] LABS: AMPHETAMINE SCREEN, URINE Positive (Negative); BARBITURATE SCREEN, URINE Negative (Negative); BENZODIAZEPINE SCREEN, URINE Negative (Negative); CANNABINOID SCREEN, URINE Negative (Negative); COCAINE SCREEN, URINE Negative (Negative); METHADONE SCREEN, URINE Negative (Negative); OPIATE SCREEN, URINE Negative (Negative)
[2020-03-11 17:37] LABS: ALANINE AMINOTRANSFERASE 16 U/L (12-78); ALBUMIN 3.6 g/dL (3.4-5.0); ANION GAP 6 mmol/L (5-15); CALCIUM 8.3 mg/dL (8.5-10.1); CHLORIDE 107 mmol/L (98-107); CREATININE 0.81 mg/dL (0.55-1.02); SALICYLATE LEVEL 1.7 mg/dL (2.8-20.0)
[2020-03-11 17:42] LABS: ALKALINE PHOSPHATASE 61 U/L (45-117); BILIRUBIN,TOTAL 0.4 mg/dL (0.2-1.0); TOTAL PROTEIN 7.3 g/dL (6.4-8.2)
[2020-03-11 17:47] VITALS: BP 103/67
--- NOTE | 2020-03-11 18:55 | NUR ---
bedside report from Penny ARCE. pt care transferred at this time. Pt resting in gurney on side, even and unlabored respirations, sitter in line of sight, SI precautions inplaced. P/W/D. CHINTM
[2020-03-11] MEDS ORDERED: BENZTROPINE 1 MG TABLET PO SCH (21:00)
== END 2020-03-12 07:59 | disposition other institution (70) ==
LOC: ED 18:28
DX: F23 Brief psychotic disorder (principal); F22 Delusional disorders; R94.31 Abnormal electrocardiogram [ECG] [EKG]; G89.29 Other chronic pain; F17.200 Nicotine dependence, unspecified, uncomplicated
CPT/HCPCS: 36415; 80053; 80307; 84443; 84703; 85025; 93005; 99284

== ENCOUNTER 2020-03-11 18:04 | Inpatient (IN) | payer MEDICARE, MEDICAID ==
[~2020-03-11] VITALS: Ht 167.6 cm; Wt 78.6 kg
[2020-03-11] MEDS ORDERED: POLYETHYLENE GLYCOL 17 GM PACKET PO PRN (19:00)
[2020-03-11] MEDS ORDERED: ONDANSETRON ODT 4 MG PO PRN (19:00)
[2020-03-11] MEDS ORDERED: ACETAMINOPHEN 325 MG TABLET PO PRN (19:00)
[2020-03-11] MEDS ORDERED: BISACODYL 10 MG SUPP PR PRN (19:00)
[2020-03-11] MEDS ORDERED: DOCUSATE 100 MG CAPSULE PO PRN (19:00)
[2020-03-11 21:08] VITALS: BP_SYST 110; BP_DIAS 62; BP_DIAS 64
[2020-03-12 07:15] VITALS: BP 102/62
[2020-03-12] MEDS: BENZTROPINE 1 MG TABLET PO SCH ×2 (09:05→20:35)
[2020-03-12] MEDS: ZIPRASIDONE 40MG CAPSULE PO SCH ×2 (09:05→20:35)
[2020-03-12] MEDS: ARIPIPRAZOLE 10 MG TABLET PO SCH (09:05)
[2020-03-12 19:30] VITALS: BP 0/0
[2020-03-13 07:06] VITALS: BP 96/63
[2020-03-13] MEDS: ARIPIPRAZOLE 10 MG TABLET PO SCH (08:28)
[2020-03-13] MEDS: ZIPRASIDONE 40MG CAPSULE PO SCH ×2 (08:30→20:09)
[2020-03-13] MEDS: BENZTROPINE 1 MG TABLET PO SCH ×2 (08:32→20:09)
[2020-03-13 09:04] LABS: MICROSCOPIC INDICATED
[2020-03-13 19:07] VITALS: BP 108/74
[2020-03-13] MEDS: TRAZODONE 50MG TABLET PO PRN (20:09)
[2020-03-13] MEDS: NITROFURANTOIN (MACROBID) 100 MG CAPSULE PO SCH (20:09)
[2020-03-14 07:12] VITALS: BP 109/76
[2020-03-14] MEDS: NITROFURANTOIN (MACROBID) 100 MG CAPSULE PO SCH ×2 (09:22→20:38)
[2020-03-14] MEDS: ZIPRASIDONE 40MG CAPSULE PO SCH ×2 (09:23→20:38)
[2020-03-14] MEDS: BENZTROPINE 1 MG TABLET PO SCH ×2 (09:23→20:38)
[2020-03-14] MEDS: ARIPIPRAZOLE 10 MG TABLET PO SCH (09:24)
[2020-03-14 20:07] VITALS: BP 101/66
[2020-03-15 07:13] VITALS: BP 107/70
[2020-03-15] MEDS: BENZTROPINE 1 MG TABLET PO SCH ×2 (08:16→19:54)
[2020-03-15] MEDS: ARIPIPRAZOLE 10 MG TABLET PO SCH (08:17)
[2020-03-15] MEDS: NITROFURANTOIN (MACROBID) 100 MG CAPSULE PO SCH (08:17)
[2020-03-15] MEDS: ZIPRASIDONE 40MG CAPSULE PO SCH ×2 (08:17→19:54)
[2020-03-15 12:53] LABS: MICROSCOPIC AUTO
[2020-03-15 19:17] VITALS: BP 117/76
[2020-03-15] MEDS: TRAZODONE 50MG TABLET PO PRN (19:53)
[2020-03-16 07:12] VITALS: BP 109/70
[2020-03-16] MEDS: BENZTROPINE 1 MG TABLET PO SCH ×2 (09:08→20:03)
[2020-03-16] MEDS: ARIPIPRAZOLE 10 MG TABLET PO SCH (09:09)
[2020-03-16] MEDS: ZIPRASIDONE 40MG CAPSULE PO SCH ×2 (09:09→20:03)
[2020-03-16 10:21] LABS: BASOPHILS # (AUTO) 0.04 x10^3/uL (0-0.1); BASOPHILS % (AUTO) 1 % (0-1); EOSINOPHILS # (AUTO) 0.66 x10^3/uL (0-0.4); EOSINOPHILS % (AUTO) 8 % (1-7); LYMPHOCYTES # (AUTO) 2.55 x10^3/uL (1-3.4); LYMPHOCYTES % (AUTO) 29 % (22-44); MD NO; MEAN CORPUSCULAR HEMOGLOBIN 28.7 pg (27.0-34.8); MEAN CORPUSCULAR VOLUME 89.9 fL (80-100); MEAN PLATELET VOLUME 8.1 fL (7.4-10.4); MONOCYTES # (AUTO) 0.37 x10^3/uL (0.2-0.8); MONOCYTES % (AUTO) 4 % (2-9); NEUTROPHILS # (AUTO) 5.11 x10^3/uL (1.8-6.8); NEUTROPHILS % (AUTO) 58 % (42-75); PLATELET COUNT 355 x10^3/uL (130-400); RED CELL DISTRIBUTION WIDTH 13.1 % (9.6-15.2)
[2020-03-16 19:05] VITALS: BP 107/73
[2020-03-17 07:28] VITALS: BP 108/75
[2020-03-17] MEDS: ARIPIPRAZOLE 10 MG TABLET PO SCH (08:44)
[2020-03-17] MEDS: ZIPRASIDONE 40MG CAPSULE PO SCH ×2 (08:45→20:20)
[2020-03-17] MEDS: BENZTROPINE 1 MG TABLET PO SCH ×2 (08:45→20:20)
[2020-03-17 20:00] VITALS: BP 110/80
[2020-03-17] MEDS: TRAZODONE 50MG TABLET PO PRN (20:20)
[2020-03-18 07:30] VITALS: BP 101/71
[2020-03-18] MEDS: BENZTROPINE 1 MG TABLET PO SCH (08:25)
[2020-03-18] MEDS: ARIPIPRAZOLE 10 MG TABLET PO SCH (08:25)
[2020-03-18] MEDS: ZIPRASIDONE 40MG CAPSULE PO SCH (08:27)
[2020-03-18] MEDS ORDERED: BENZ1TAB61 PO (10:41)
[2020-03-18] MEDS ORDERED: ARIP10TA33 PO (10:41)
[2020-03-18] MEDS ORDERED: ZIPR40CA2 PO (10:41)
== END 2020-03-18 12:25 | disposition home or self-care (01) | DRG 885 ==
LOC: 3E 19:30
PROVIDERS: ADMIT Psychiatry & Neurology Psychosomatic Medicine; ATTEND Psychiatry & Neurology Psychosomatic Medicine
DX: F25.0 Schizoaffective disorder, bipolar type (principal); F15.20 Other stimulant dependence, uncomplicated; F17.210 Nicotine dependence, cigarettes, uncomplicated; F41.9 Anxiety disorder, unspecified; K59.00 Constipation, unspecified; F64.9 Gender identity disorder, unspecified; Z79.899 Other long term (current) drug therapy; Z88.8 Allergy status to other drugs, medicaments and biological substances
CPT/HCPCS: 36415; 80053; 80307; 81001; 84443; 84703; 85025; 87086; 93005; 99284

== ENCOUNTER 2020-03-28 04:49 | Emergency (ER) | payer MEDICARE, MEDICAID ==
[~2020-03-28] VITALS: Ht 172.7 cm; Wt 77.4 kg
[2020-03-28 04:51] VITALS: BP 101/67
--- NOTE | 2020-03-28 05:13 | NUR ---
Pt states she feels like "an old person with bugs all over her" and "needs an aneurysm check." Pt states she has been feeling this way "since covid started." Pt denies cough, sob, fever, nausea, headache, or any symptoms "other than feeling like an old person with bugs all over"
== END 2020-03-28 05:29 | disposition home or self-care (01) ==
LOC: ED 05:24
DX: F15.10 Other stimulant abuse, uncomplicated (principal); F41.9 Anxiety disorder, unspecified
CPT/HCPCS: 99281

== ENCOUNTER 2020-03-28 18:05 | Emergency (ER) | payer MEDICARE, MEDICAID ==
[~2020-03-28] VITALS: Ht 172.7 cm; Wt 77.0 kg
--- NOTE | 2020-03-28 18:43 | NUR ---
REPORT RECIEVED FROM CLAUDE MENG. PT RESTING ON [facility] WITH MONITORING IN PLACE, CALL LIGHT WITHIN REACH.
[2020-03-28 19:11] LABS: BASOPHILS # (AUTO) 0.03 x10^3/uL (0-0.1); BASOPHILS % (AUTO) 0 % (0-1); EOSINOPHILS # (AUTO) 0.34 x10^3/uL (0-0.4); EOSINOPHILS % (AUTO) 4 % (1-7); LYMPHOCYTES # (AUTO) 2.81 x10^3/uL (1-3.4); LYMPHOCYTES % (AUTO) 30 % (22-44); MD NO; MEAN CORPUSCULAR HEMOGLOBIN 29.4 pg (27.0-34.8); MEAN CORPUSCULAR VOLUME 88.9 fL (80-100); MEAN PLATELET VOLUME 8.6 fL (7.4-10.4); MONOCYTES # (AUTO) 0.42 x10^3/uL (0.2-0.8); MONOCYTES % (AUTO) 5 % (2-9); NEUTROPHILS # (AUTO) 5.65 x10^3/uL (1.8-6.8); NEUTROPHILS % (AUTO) 61 % (42-75); PLATELET COUNT 340 x10^3/uL (130-400); RED BLOOD COUNT 4.41 x10^6/uL (3.82-5.3); RED CELL DISTRIBUTION WIDTH 13.2 % (9.6-15.2)
[2020-03-28 19:22] LABS: ALBUMIN 3.5 g/dL (3.4-5.0); ANION GAP 7 mmol/L (5-15); CALCIUM 8.9 mg/dL (8.5-10.1); CHLORIDE 108 mmol/L (98-107); CREATININE 0.65 mg/dL (0.55-1.02)
--- NOTE | 2020-03-28 19:23 | NUR ---
PT UP TO BATHROOM WITH STEADY GAIT TO ATTEMPT UA.
[2020-03-28 19:25] LABS: SALICYLATE LEVEL < 1.7 mg/dL (2.8-20.0)
[2020-03-28 19:54] VITALS: BP 108/66
--- NOTE | 2020-03-28 19:55 | NUR ---
PT UPDATED ON POC, URINE SENT TO LAB.
[2020-03-28] MEDS ORDERED: PALIPERIDONE PALMITATE 234 MG/1.5 ML IM ONE (20:30)
[2020-03-28 20:42] LABS: AMPHETAMINE SCREEN, URINE Negative (Negative); BARBITURATE SCREEN, URINE Negative (Negative); BENZODIAZEPINE SCREEN, URINE Negative (Negative); CANNABINOID SCREEN, URINE Negative (Negative); COCAINE SCREEN, URINE Negative (Negative); METHADONE SCREEN, URINE Negative (Negative); OPIATE SCREEN, URINE Negative (Negative)
== END 2020-03-28 21:03 | disposition home or self-care (01) ==
LOC: ED 20:55
DX: F29 Unspecified psychosis not due to a substance or known physiological condition (principal); F25.9 Schizoaffective disorder, unspecified
CPT/HCPCS: 36415; 80048; 80307; 82040; 85025; 99284

== ENCOUNTER 2020-04-04 04:04 | Emergency (ER) | payer MEDICARE, MEDICAID ==
[~2020-04-04] VITALS: Ht 172.7 cm; Wt 72.6 kg
[2020-04-04] MEDS ORDERED: LORazepam 1MG TABLET PO ONE (05:00)
[2020-04-04] MEDS ORDERED: LORazepam 1MG TABLET ONE (05:08)
--- NOTE | 2020-04-04 05:14 | NUR ---
PT MEDICATED PER OCT 03 RIGHTS VERIFIED NADN. PT TOLERATED WELL
[2020-04-04 05:15] VITALS: BP 110/77
== END 2020-04-04 06:06 | disposition home or self-care (01) ==
LOC: ED 05:06
DX: F15.129 Other stimulant abuse with intoxication, unspecified (principal); F41.1 Generalized anxiety disorder; R45.1 Restlessness and agitation
CPT/HCPCS: 99283

== ENCOUNTER 2020-04-09 17:31 | Emergency (ER) | payer MEDICARE, MEDICAID ==
[~2020-04-09] VITALS: Ht 172.7 cm; Wt 72.7 kg
--- NOTE | 2020-04-09 17:40 | NUR ---
PT CALLED BYRON FROM [facility]. REQUESTING "ANAL SWAB AND CAVITY SEARCH". PT REPORTS SHE'S SMELLING WEIRD THINGS AND BELIEVES SHE MIGHT'VE "CONTRACTED SOMETHING FROM SOMEONE". PT HAS HX OF SCHIZO/BIPOLAR. PER EMS, PT HASN'T BEEN ABLE TO GO TO HER MENTAL HEALTH APPT'S AT [facility] X4 MONTHS BECAUSE HER MERGERS AND ACQUISITIONS ATTORNEY QUIT. PT'S ONLY FAMILY (GRANDFATHER) LEFT AND PT IS NOW AT A MOTEL. PT ARRIVES TO ED CALM, RESPONSIVE, WELL-KEPT. VSS.
--- NOTE | 2020-04-09 17:52 | NUR ---
CALLED CASE MANAGEMENT WHO WILL COME SPEAK WITH PT.
[2020-04-09 17:57] VITALS: BP 109/70
--- NOTE | 2020-04-09 18:11 | NUR ---
SUPERVISOR VAT HOUSE AT NOW TO SPEAK WITH PT ABOUT HER APPOINTMENTS.
--- NOTE | 2020-04-09 18:20 | NUR ---
F/U APPT PHONE NUMBER PROVIDED TO PT AND CIRCLED BY BELT BACK OPERATOR, PT VERBALIZES UNDERSTANDING. D/C PAPERS PROVIDED. PT AMBULATED OUT OF ED WITHOUT DIFFICULTY.
== END 2020-04-09 18:44 | disposition home or self-care (01) ==
LOC: ED 18:21
DX: F22 Delusional disorders (principal); F25.9 Schizoaffective disorder, unspecified; Z87.891 Personal history of nicotine dependence
CPT/HCPCS: 99283

== ENCOUNTER 2020-04-13 12:09 | Emergency (ER) | payer MEDICARE, MEDICAID ==
[~2020-04-13] VITALS: Ht 172.7 cm; Wt 74.5 kg
[2020-04-13 12:24] VITALS: BP 114/75
--- NOTE | 2020-04-13 12:54 | NUR ---
THIS RN AT BEDSIDE WITH MD FOR ASSESSMENT.
--- NOTE | 2020-04-13 13:45 | NUR ---
MED REQUESTED FROM PHARMACY.
--- NOTE | 2020-04-13 14:11 | NUR ---
MED APPLIED BY PT. PT VERBALIZES UNDERSTANDING OF APPLICATION.
[2020-04-13] MEDS ORDERED: NYSTATIN CRM 15GM TP SCH (21:00)
== END 2020-04-13 14:21 | disposition home or self-care (01) ==
LOC: ED 12:52
DX: B37.2 Candidiasis of skin and nail (principal); F22 Delusional disorders; F20.9 Schizophrenia, unspecified
CPT/HCPCS: 99282

== ENCOUNTER 2020-04-13 23:44 | Emergency (ER) | payer MEDICARE, MEDICAID ==
[~2020-04-13] VITALS: Ht 172.7 cm; Wt 74.0 kg
--- NOTE | 2020-04-14 00:05 | NUR ---
assumed care of pt. pt here for pain to gluteal area x1 day. upon inspection, pt has redness/rash to gluteal area, perineum and down the inside of both thighs. no open wounds, no drainage. pt is ambulatory and denies any urinary c/o. no family at bedside
[2020-04-14 00:31] VITALS: BP 138/86
== END 2020-04-14 00:34 | disposition home or self-care (01) ==
LOC: ED 23:50
DX: L22 Diaper dermatitis (principal); B37.2 Candidiasis of skin and nail; F15.150 Other stimulant abuse with stimulant-induced psychotic disorder with delusions; Z72.9 Problem related to lifestyle, unspecified; F20.9 Schizophrenia, unspecified; R00.0 Tachycardia, unspecified
CPT/HCPCS: 99282; 99283

== ENCOUNTER 2020-04-16 11:25 | Emergency (ER) | payer MEDICAID, MEDICARE ==
[~2020-04-16] VITALS: Ht 172.7 cm; Wt 72.6 kg
[2020-04-16 11:49] VITALS: BP 115/70
--- NOTE | 2020-04-16 12:09 | NUR ---
PT STATES SHE IS IN NEED OF A THYROID CLEANSING, PT STATES SHE ALSO WOULD LIKE MALE HORMONE INJECTIONS. PT NOT OPENING EYES DURING QUESTIONING, PT LYING FLAT ON GURNEY. PT DENIES SI/HI. STATES SHE HAS AN APARTMENT, SHE IS TAKING MEDICATIONS REGULARLY. ERPROVIDER IN TO [facility] PT. PT WITH SAFE DC PLAN, ANTICPATED DC
== END 2020-04-16 12:36 | disposition home or self-care (01) ==
LOC: ED 12:15
DX: F24 Shared psychotic disorder (principal); F20.89 Other schizophrenia; F15.150 Other stimulant abuse with stimulant-induced psychotic disorder with delusions; F31.9 Bipolar disorder, unspecified
CPT/HCPCS: 99281

== ENCOUNTER 2020-04-17 06:29 | Emergency (ER) | payer MEDICARE ==
[~2020-04-17] VITALS: Ht 172.7 cm; Wt 72.4 kg
[2020-04-17 07:45] VITALS: BP 109/58
--- NOTE | 2020-04-17 08:50 | NUR ---
No answer to lobby call x2 (looked in back steel/bathroom as well)
--- NOTE | 2020-04-17 09:18 | NUR ---
No answer to lobby call x3. amado depart from system
== END 2020-04-17 09:21 | disposition left against medical advice (07) ==
LOC: ED 09:10
DX: F98.9 Unspecified behavioral and emotional disorders with onset usually occurring in childhood and adolescence (principal); Z53.21 Procedure and treatment not carried out due to patient leaving prior to being seen by health care provider

== ENCOUNTER 2020-04-25 16:05 | Emergency (ER) | payer MEDICARE ==
[~2020-04-25] VITALS: Ht 172.7 cm; Wt 72.9 kg
[2020-04-25 16:13] VITALS: BP 115/59
--- NOTE | 2020-04-25 20:13 | NUR ---
PT CALLED FOR VITALS, NOT IN LOBBY
== END 2020-04-25 20:21 ==
LOC: ED 20:15
DX: F29 Unspecified psychosis not due to a substance or known physiological condition (principal); F41.9 Anxiety disorder, unspecified
CPT/HCPCS: 99281

== ENCOUNTER 2020-04-28 14:47 | Emergency (ER) | payer MEDICARE ==
[~2020-04-28] VITALS: Ht 172.7 cm; Wt 73.5 kg
[2020-04-28 15:06] VITALS: BP 128/88
== END 2020-04-28 16:13 | disposition home or self-care (01) ==
LOC: ED 15:41
DX: F15.150 Other stimulant abuse with stimulant-induced psychotic disorder with delusions (principal); F20.89 Other schizophrenia; Z72.9 Problem related to lifestyle, unspecified; F17.200 Nicotine dependence, unspecified, uncomplicated
CPT/HCPCS: 99283

== ENCOUNTER 2020-05-05 14:45 | Emergency (ER) | payer MEDICARE, MEDICAID ==
[~2020-05-05] VITALS: Ht 172.7 cm; Wt 70.0 kg
[2020-05-05 14:49] VITALS: BP 121/70
--- NOTE | 2020-05-05 17:04 | NUR ---
ROAD ROLLER ENGINEER: NO ANSWER X1 AT THIS TIME TO ROOM PT FROM LOBBY
--- NOTE | 2020-05-05 17:15 | NUR ---
GENERAL MANAGER FARM: NO ANSWER X2 FROM LOBBY AT THIS TIME
--- NOTE | 2020-05-05 17:32 | NUR ---
DIRECTOR MULTIMEDIA: INGRID. NO ANSWER X3 FROM SILVERIO. OLIVERIO SMITH AND EQUIPMENT WASHERDMITRY ZHOU STATED "PT LEFT QUITE SOME TIME AGO AFTER ASKING FOR CRACKERS, WALKED OUT WITH STEADY GAIT."
== END 2020-05-05 17:34 | disposition left against medical advice (07) ==
LOC: ED 17:25
DX: F41.9 Anxiety disorder, unspecified (principal); Z53.21 Procedure and treatment not carried out due to patient leaving prior to being seen by health care provider

== ENCOUNTER 2020-05-07 17:27 | Emergency (ER) | payer MEDICARE, MEDICAID ==
[~2020-05-07] VITALS: Ht 172.7 cm; Wt 73.0 kg
--- NOTE | 2020-05-07 17:37 | NUR ---
ASSUMED CARE OF PATIENT. PATIENT BIB BYRON. PT REPORTS SHE WANTS BACK ON HER PSYCH MEDS. PT ALSO REPORTS SHE DID SPEED AN HOUR AGO. PT DENIES SI, HI. PT ALSO DENIES HX OF. VS STABLE. NO ACUTE DISTRESS NOTED. WILL CONTINUE TO MONITOR.
--- NOTE | 2020-05-07 17:45 | NUR ---
DR MCGILL IN ROOM
[2020-05-07] MEDS ORDERED: ZIPRASIDONE 20MG CAPSULE PO ONE (18:00)
[2020-05-07] MEDS ORDERED: ZIPRASIDONE 20MG CAPSULE ONE (18:05)
[2020-05-07 18:08] VITALS: BP 114/69
--- NOTE | 2020-05-07 18:12 | NUR ---
PT CALM AND RESTING IN ROOM. NO ACUTE DISTRESS NOTED. PT REPORTS SHE TAKES HOME GEODON BUT HAS BEEN OUT OF HER MEDS. DR MCGILL AWARE. PO GEODON GIVEN PER DR MCGILL. CALL LIGHT IN PLACE. NO ACUTE DISTRESS NOTED. WILL CONTINUE TO MONITOR.
--- NOTE | 2020-05-07 19:12 | NUR ---
report given to CLAUDE Coy
== END 2020-05-07 21:30 | disposition home or self-care (01) ==
LOC: ED 21:24
DX: F15.159 Other stimulant abuse with stimulant-induced psychotic disorder, unspecified (principal); F25.9 Schizoaffective disorder, unspecified
CPT/HCPCS: 99283

== ENCOUNTER 2020-05-11 02:10 | Emergency (ER) | payer MEDICARE, MEDICAID ==
[~2020-05-11] VITALS: Ht 172.7 cm; Wt 70.4 kg
[2020-05-11 02:12] VITALS: BP 116/77
--- NOTE | 2020-05-11 02:31 | NUR ---
PT HAS NO MEDICAL COMPLAINT, STATES SHE WANTS HER WRISTBAND CUT OFF AND TO HAVE A SHOT IN THE FACE TO CLEAN HER ORGANS. PT IS A/OX3, ADMITS TO DAILY METH USE LAST USE HOURS AGO. Addendum: 05/11/20 at 0234 by LLEE1 ADITYA PARMAR/
== END 2020-05-11 03:12 | disposition home or self-care (01) ==
LOC: ED 02:30
DX: F15.150 Other stimulant abuse with stimulant-induced psychotic disorder with delusions (principal); Z72.9 Problem related to lifestyle, unspecified; F17.210 Nicotine dependence, cigarettes, uncomplicated
CPT/HCPCS: 99281; 99406

== ENCOUNTER 2020-05-14 16:45 | Emergency (ER) | payer MEDICARE, MEDICAID ==
[~2020-05-14] VITALS: Ht 172.7 cm; Wt 70.1 kg
[2020-05-14 16:50] VITALS: BP 135/77
--- NOTE | 2020-05-14 17:38 | NUR ---
PT STATES SHE HAS NO MEDICAL COMPLAINT, JUST QUESTIONS ABOUT HER INSURANCE. PT DENIES ANY PAIN. PT DENIES SYMPTOMS.
== END 2020-05-14 18:36 | disposition home or self-care (01) ==
LOC: ED 17:18
DX: F15.159 Other stimulant abuse with stimulant-induced psychotic disorder, unspecified (principal); F17.210 Nicotine dependence, cigarettes, uncomplicated; R00.0 Tachycardia, unspecified; F25.9 Schizoaffective disorder, unspecified; G89.29 Other chronic pain
CPT/HCPCS: 99283; 99406

== ENCOUNTER 2020-05-15 03:33 | Emergency (ER) | payer MEDICARE, MEDICAID ==
[~2020-05-15] VITALS: Ht 172.7 cm; Wt 69.8 kg
[2020-05-15 03:41] VITALS: BP 140/76
== END 2020-05-15 05:30 | disposition home or self-care (01) ==
LOC: ED 04:04
DX: F15.159 Other stimulant abuse with stimulant-induced psychotic disorder, unspecified (principal); F22 Delusional disorders
CPT/HCPCS: 99281

== ENCOUNTER 2020-05-15 22:45 | Emergency (ER) | payer MEDICARE, MEDICAID ==
[~2020-05-15] VITALS: Ht 172.7 cm; Wt 70.5 kg
[2020-05-15 22:47] VITALS: BP 109/81
[2020-05-15] MEDS ORDERED: ACETAMINOPHEN 325 MG TABLET PO ONE (23:00)
[2020-05-15] MEDS ORDERED: ACETAMINOPHEN 325 MG TABLET ONE (23:03)
== END 2020-05-15 23:34 | disposition home or self-care (01) ==
LOC: ED 23:02
DX: M54.5 Low back pain (principal)
CPT/HCPCS: 99282

== ENCOUNTER 2020-05-18 00:59 | Emergency (ER) | payer MEDICARE, MEDICAID ==
[~2020-05-18] VITALS: Ht 177.8 cm; Wt 70.0 kg
[2020-05-18 01:02] VITALS: BP 115/70
--- NOTE | 2020-05-18 01:23 | NUR ---
PT NOT IN LOBBY AT THIS TIME, WILL CONTINUE TO CHECK
--- NOTE | 2020-05-18 01:57 | NUR ---
PT NOT IN LOBBY AT THIS TIME
--- NOTE | 2020-05-18 03:20 | NUR ---
NO ANSWER WHEN CALLED FOR ROOM, NEXT PT ROOMED
--- NOTE | 2020-05-18 03:27 | NUR ---
SECURITY NOTES THAT PT IS SLEEPING SOUNDLY IN THE LOBBY, WILL ROOM NEXT.
--- NOTE | 2020-05-18 03:51 | NUR ---
PT AMBULATORY TO ROOM WITH STEADY GAIT, STATES THAT SHE JUST WANTS TO SLEEP.
== END 2020-05-18 04:23 | disposition home or self-care (01) ==
LOC: ED 04:00
DX: F15.10 Other stimulant abuse, uncomplicated (principal); Z72.9 Problem related to lifestyle, unspecified; Z87.891 Personal history of nicotine dependence; F25.9 Schizoaffective disorder, unspecified
CPT/HCPCS: 99281; 99282

== ENCOUNTER 2020-05-18 14:47 | Emergency (ER) | payer MEDICARE, MEDICAID ==
[~2020-05-18] VITALS: Ht 165.1 cm; Wt 70.8 kg
[2020-05-18 15:13] VITALS: BP 111/41
--- NOTE | 2020-05-18 15:36 | NUR ---
RN entered room, pt was found clenaing herself with bleach wipes. Pt was completely nude and scrubbing her genitalia. Pt reports she is sorry. Pt taken to decon shower to wipe off chemicals to prevent burn or irritation. Pt cooperative.
--- NOTE | 2020-05-18 15:42 | NUR ---
Leyla ralph, Saw patients skin and turned water temp down to prevent burning. Pts skin appears to not be irritated as bad anymore.
--- NOTE | 2020-05-18 15:45 | NUR ---
Pt denies SI/HI to [place] forensic social worker.
--- NOTE | 2020-05-18 16:15 | NUR ---
Pt given meal tray.
[2020-05-18] MEDS ORDERED: PALIPERIDONE 6 MG TAB.ER.24 PO SCH (17:00)
--- NOTE | 2020-05-18 17:03 | NUR ---
Pt moved to safe room. 1 bag of belongings placed in ed locker (pants, shoes, shirt, 1 wallet with no smiley in it or credit cards, 2 mood rings.) 1 bag of bluw/clear crystals approximately 10-20grams dispoed of with Jhon lyon and Michi Holguin RN as second witness.
--- NOTE | 2020-05-18 17:08 | NUR ---
Pt has sitter outside room. Pt came into ed for medicaitons. It was evalauted pt in her current post 2 day meth use state she is unable to care for herslef. Placed on legal by Psych KALINA Hernández.
[2020-05-18 17:10] LABS: BASOPHILS % (AUTO) 1 % (0-1); EOSINOPHILS % (AUTO) 6 % (1-7); LYMPHOCYTES % (AUTO) 28 % (22-44); MEAN CORPUSCULAR HEMOGLOBIN 28.7 pg (27.0-34.8); MEAN CORPUSCULAR HGB CONC 32.8 g/dL (32.4-35.8); MONOCYTES % (AUTO) 7 % (2-9); NEUTROPHILS % (AUTO) 58 % (42-75); PLATELET COUNT 355 x10^3/uL (130-400); RED BLOOD COUNT 4.49 x10^6/uL (3.82-5.3); RED CELL DISTRIBUTION WIDTH 13.2 % (9.6-15.2)
[2020-05-18 17:16] LABS: ALBUMIN 3.5 g/dL (3.4-5.0); ANION GAP 4 mmol/L (5-15); CALCIUM 9.2 mg/dL (8.5-10.1); CHLORIDE 110 mmol/L (98-107); CREATININE 0.66 mg/dL (0.55-1.02); MD NO
[2020-05-18 17:22] LABS: SALICYLATE LEVEL < 1.7 mg/dL (2.8-20.0)
--- NOTE | 2020-05-18 17:27 | NUR ---
Pt playing with TV remote but not watching tv.
== END 2020-05-18 23:11 ==
LOC: ED 15:34
DX: F20.89 Other schizophrenia (principal); F15.122 Other stimulant abuse with intoxication with perceptual disturbance; G89.29 Other chronic pain; Z91.14 Patient's other noncompliance with medication regimen
CPT/HCPCS: 36415; 80048; 80307; 82040; 84703; 85025; 99285

== ENCOUNTER 2020-05-18 17:40 | Inpatient (IN) | payer MEDICARE, MEDICAID ==
[~2020-05-18] VITALS: Ht 167.6 cm; Wt 69.9 kg
[2020-05-18] MEDS ORDERED: ONDANSETRON ODT 4 MG PO PRN (18:00)
[2020-05-18] MEDS ORDERED: POLYETHYLENE GLYCOL 17 GM PACKET PO PRN (18:00)
[2020-05-18] MEDS ORDERED: BISACODYL 10 MG SUPP PR PRN (18:00)
[2020-05-18] MEDS ORDERED: ACETAMINOPHEN 325 MG TABLET PO PRN (18:00)
[2020-05-18] MEDS ORDERED: PLEASE ENTER HEIGHT AND WEIGHT MC SCH (18:30)
[2020-05-18 19:09] VITALS: BP 104/68
[2020-05-18 19:42] VITALS: BP 104/68
[2020-05-18] MEDS ORDERED: FLU VACCINE PER PHARMACY IM ONE (20:00)
[2020-05-18] MEDS ORDERED: FLU VACC QS2020-21(6MOS UP)/PF 60MCG/0.5 ML SYR IM-VACC ONE (20:00)
[2020-05-18] MEDS: ZIPRASIDONE 40MG CAPSULE PO SCH (21:09)
[2020-05-19 07:26] VITALS: BP 115/76
[2020-05-19 07:26] LABS: CHOL/HDL RATIO 2.1; LDL/HDL RATIO 0.8 (0.5-3.0)
[2020-05-19] MEDS: ARIPIPRAZOLE 10 MG TABLET PO SCH (08:34)
[2020-05-19] MEDS: ZIPRASIDONE 40MG CAPSULE PO SCH ×2 (08:34→20:08)
[2020-05-20 07:04] VITALS: BP 112/78
[2020-05-20] MEDS: ZIPRASIDONE 40MG CAPSULE PO SCH ×2 (08:18→21:14)
[2020-05-20] MEDS: ARIPIPRAZOLE 10 MG TABLET PO SCH (08:18)
[2020-05-20 08:45] LABS: MICROSCOPIC NOT IND
[2020-05-20 09:02] LABS: AMPHETAMINE SCREEN, URINE Positive (Negative); BARBITURATE SCREEN, URINE Negative (Negative); BENZODIAZEPINE SCREEN, URINE Negative (Negative); CANNABINOID SCREEN, URINE Negative (Negative); COCAINE SCREEN, URINE Negative (Negative); METHADONE SCREEN, URINE Negative (Negative); OPIATE SCREEN, URINE Negative (Negative)
[2020-05-20 19:57] VITALS: BP 119/79
[2020-05-21 07:10] VITALS: BP 109/64
[2020-05-21] MEDS: ZIPRASIDONE 40MG CAPSULE PO SCH ×2 (08:20→20:25)
[2020-05-21] MEDS: ARIPIPRAZOLE 10 MG TABLET PO SCH (08:20)
[2020-05-21] MEDS: HYDROXYZINE PAMOATE 50MG CAP PO PRN ×2 (14:14→20:25)
[2020-05-21] MEDS ORDERED: BENZTROPINE 1 MG/ML, 2 ML IM ONE (15:00)
[2020-05-21 18:49] VITALS: BP 108/70
[2020-05-22 07:19] VITALS: BP 99/64
[2020-05-22] MEDS: ZIPRASIDONE 40MG CAPSULE PO SCH ×2 (08:12→19:44)
[2020-05-22] MEDS: ARIPIPRAZOLE 10 MG TABLET PO SCH (08:12)
[2020-05-22 10:10] VITALS: BP 102/71
[2020-05-22 19:35] VITALS: BP 110/73
[2020-05-22] MEDS: HYDROXYZINE PAMOATE 50MG CAP PO PRN (19:44)
[2020-05-23 07:42] VITALS: BP 96/62
[2020-05-23] MEDS: ARIPIPRAZOLE 10 MG TABLET PO SCH (08:52)
[2020-05-23] MEDS: ZIPRASIDONE 40MG CAPSULE PO SCH ×2 (08:53→20:21)
[2020-05-23 18:06] VITALS: BP 126/85
[2020-05-23] MEDS: HYDROXYZINE PAMOATE 50MG CAP PO PRN (22:31)
[2020-05-24 07:09] VITALS: BP 95/64
[2020-05-24] MEDS: ARIPIPRAZOLE 10 MG TABLET PO SCH (08:14)
[2020-05-24] MEDS: ZIPRASIDONE 40MG CAPSULE PO SCH ×2 (08:15→20:22)
[2020-05-24] MEDS: HYDROXYZINE PAMOATE 50MG CAP PO PRN ×2 (08:48→16:09)
[2020-05-24 19:30] VITALS: BP 101/63
[2020-05-24] MEDS ORDERED: ZIPRASIDONE 20MG CAPSULE ONE (20:17)
[2020-05-25 07:33] VITALS: BP 119/65
[2020-05-25] MEDS ORDERED: ZIPRASIDONE 20MG CAPSULE ONE ×2 (08:49→19:38)
[2020-05-25] MEDS: ZIPRASIDONE 40MG CAPSULE PO SCH ×2 (08:51→21:07)
[2020-05-25] MEDS: ARIPIPRAZOLE 10 MG TABLET PO SCH (08:52)
[2020-05-25] MEDS: HYDROXYZINE PAMOATE 50MG CAP PO PRN (20:08)
[2020-05-25 20:36] VITALS: BP 108/73
[2020-05-26 07:32] VITALS: BP_SYST 149; BP_SYST 94; BP_DIAS 62
[2020-05-26] MEDS: ARIPIPRAZOLE 10 MG TABLET PO SCH (08:33)
[2020-05-26] MEDS: ZIPRASIDONE 40MG CAPSULE PO SCH ×2 (08:33→20:20)
[2020-05-26 19:21] VITALS: BP 100/61
[2020-05-27 07:20] VITALS: BP 109/72
[2020-05-27] MEDS: ARIPIPRAZOLE 10 MG TABLET PO SCH (08:16)
[2020-05-27] MEDS: ZIPRASIDONE 40MG CAPSULE PO SCH (08:16)
[2020-05-27] MEDS ORDERED: ZIPR40CA2 PO (17:16)
[2020-05-27] MEDS ORDERED: ARIP10TA33 PO (17:16)
[2020-05-27] MEDS ORDERED: HYDR50CA2 PO (17:16)
== END 2020-05-27 17:45 | disposition home or self-care (01) | DRG 885 ==
LOC: UNDOADMIN 18:23 → 3E 18:23
PROVIDERS: ADMIT Psychiatry & Neurology Psychosomatic Medicine; ATTEND Psychiatry & Neurology Psychosomatic Medicine
DX: F25.0 Schizoaffective disorder, bipolar type (principal); F11.20 Opioid dependence, uncomplicated; F15.20 Other stimulant dependence, uncomplicated; F19.90 Other psychoactive substance use, unspecified, uncomplicated; R10.9 Unspecified abdominal pain; Z20.828 Contact with and (suspected) exposure to other viral communicable diseases; Z88.8 Allergy status to other drugs, medicaments and biological substances; F17.200 Nicotine dependence, unspecified, uncomplicated; F41.1 Generalized anxiety disorder; Z79.899 Other long term (current) drug therapy; F64.9 Gender identity disorder, unspecified
CPT/HCPCS: 36415; 80048; 80061; 80307; 81003; 82040; 84439; 84443; 84703; 85025; 87635; 90686; 93005; 99281; 99285; G0378; J0515

== ENCOUNTER 2020-05-28 21:12 | Emergency (ER) | payer MEDICARE, MEDICAID ==
[~2020-05-28] VITALS: Ht 172.7 cm; Wt 72.0 kg
[~2020-05-28 21:12] MED LIST changes: +HYDR50CA2 PO
[2020-05-28 21:16] VITALS: BP 123/85
--- NOTE | 2020-05-28 21:48 | NUR ---
AMBULATORY TO ED ROOM 6 W/ STEADY GAIT.
[2020-05-28] MEDS ORDERED: LORazepam 1MG TABLET ONE (21:58)
[2020-05-28] MEDS ORDERED: LORazepam 1MG TABLET PO ONE (22:00)
[2020-05-28] MEDS ORDERED: OLANZAPINE 10 MG TABLET ONE (22:10)
[2020-05-28] MEDS ORDERED: OLANZAPINE 10 MG TABLET PO ONE (22:30)
== END 2020-05-28 23:38 | disposition home or self-care (01) ==
LOC: ED 22:12
DX: F41.1 Generalized anxiety disorder (principal); Z72.9 Problem related to lifestyle, unspecified; F15.10 Other stimulant abuse, uncomplicated; R94.31 Abnormal electrocardiogram [ECG] [EKG]; F25.9 Schizoaffective disorder, unspecified
CPT/HCPCS: 93005; 99283

== ENCOUNTER 2020-05-30 18:43 | Emergency (ER) | payer MEDICARE, MEDICAID ==
--- NOTE | 2020-05-30 18:55 | NUR ---
PT CALLED AND NIL X1
--- NOTE | 2020-05-30 19:03 | NUR ---
NOT IN LOBBY X2
--- NOTE | 2020-05-30 19:15 | NUR ---
CALLED 3 X NIL
== END 2020-05-31 02:52 | disposition left against medical advice (07) ==
LOC: ED 19:30
DX: F32.9 Major depressive disorder, single episode, unspecified (principal); Z53.21 Procedure and treatment not carried out due to patient leaving prior to being seen by health care provider

== ENCOUNTER 2020-05-31 09:38 | Emergency (ER) | payer MEDICARE, MEDICAID ==
[~2020-05-31] VITALS: Ht 162.6 cm; Wt 72.1 kg
[2020-05-31] MEDS ORDERED: ZIPRASIDONE 20 MG INJ IM ONE ×2 (10:00→10:01)
--- NOTE | 2020-05-31 10:09 | NUR ---
PT REPORTS SHE IS HERE FOR A B12 SHOT TO HELP HER HAIR. PT DENIES SI/HI. PT ALSO STATES "I WOULD ALSO LIKE TO GET THE SMOKE CLEANED OUT OF MY SKIN WITH THE 7% CLEANING STUFF." PT RESTING COMFORTABLY IN [facility], NO OTHER COMPLAINTS AT THIS TIME.
[2020-05-31 10:40] VITALS: BP 126/77
--- NOTE | 2020-05-31 10:40 | NUR ---
Patient given discharge instructions and they have confirmed that they understand the instructions. Patient ambulatory with steady gait.
== END 2020-05-31 10:57 | disposition home or self-care (01) ==
LOC: ED 10:45
DX: F25.9 Schizoaffective disorder, unspecified (principal); F15.159 Other stimulant abuse with stimulant-induced psychotic disorder, unspecified; Z59.0 Homelessness
CPT/HCPCS: 96372; 99284; J3486

== ENCOUNTER 2020-06-02 08:21 | Emergency (ER) | payer MEDICARE, MEDICAID ==
[~2020-06-02] VITALS: Ht 172.7 cm; Wt 71.3 kg
[2020-06-02] MEDS ORDERED: ZIPRASIDONE 20 MG INJ IM ONE ×2 (08:58→09:00)
[2020-06-02] MEDS ORDERED: LORazepam 1MG TABLET ONE (08:58)
[2020-06-02] MEDS ORDERED: LORazepam 1MG TABLET PO ONE (09:00)
--- NOTE | 2020-06-02 09:07 | NUR ---
PT W/ C/O OPEN BLISTERS ON TOES. EMT AT BEDSIDE, CLEANED WITH PYSODERM CLEANSER, BACITRACIN APPLIED AND CLEAN SOCKS PLACED. PT MED NOTED. PT ORIENTED TO PERSON, PLACE, IS COOPERATIVE AND CONVERSES. HOWEVER PT EXHIBITS PARANOID THOUGHTS AND RAMBLES AT TIMES WITH RAPID CHANGE OF IDEAS AND SUBJECTS. IS EASILY RE DIRECTED. VSS, CALL LIGHT W/I REACH
--- NOTE | 2020-06-02 09:11 | NUR ---
THIS RN ATTEMPTED TO REVIEW MEDICATIONS. PT STATED THAT SHE HASN'T TAKEN THEM VERBALIZING "I PUT THEM IN MY VAGINA AND THEN PINK STUFF CAME OUT AND NOW I HAVE TEBURCULOSIS" "ALSO I NEED TO BE STERALIZED BECAUSE OF TAPE"
--- NOTE | 2020-06-02 10:30 | NUR ---
PT NOW SLEEPING, NAD NOTED, RESP EVEN NON-LABORED.
--- NOTE | 2020-06-02 10:55 | NUR ---
PSYCH SERVER SOFTWARE ENGINEER AT BEDSIDE. PLAN FOR D/C DISCUSSED. MEAL TRAY ORDERED.
--- NOTE | 2020-06-02 12:05 | NUR ---
SPOKE WITH DIETARY RE: FOOD TRAY. S/B DELIVERED SOON
--- NOTE | 2020-06-02 12:13 | NUR ---
MEAL TRAY DELIVERED. PT SITTING [facility] IN [facility], EATING W/O DIFICULTY. PT PARANOIA IS MUCH IMPROVED. PT NOW ABLE TO CARRY ON LUCID CONVERSATION WITH THIS RN. PT VERBALIZES THAT SHE WILL GET HER MONEY ON AND VERBALIZES "I'LL BE FINE TONIGHT I HAVE SOMEWHERE TO GO"
[2020-06-02 12:14] VITALS: BP 108/74
--- NOTE | 2020-06-02 12:30 | NUR ---
Patient/Caregiver given discharge instructions and they have confirmed that they understand the instructions. Patient ambulatory with steady gait.
== END 2020-06-02 12:42 | disposition home or self-care (01) ==
LOC: ED 08:40
DX: F15.150 Other stimulant abuse with stimulant-induced psychotic disorder with delusions (principal); F25.9 Schizoaffective disorder, unspecified; F31.9 Bipolar disorder, unspecified
CPT/HCPCS: 96372; 99283; J3486

== ENCOUNTER 2020-06-03 15:15 | Emergency (ER) | payer MEDICARE, MEDICAID ==
[~2020-06-03] VITALS: Ht 172.7 cm; Wt 74.0 kg
--- NOTE | 2020-06-03 15:25 | NUR ---
CALLED FOR PT. PT NOT IN LOBBY
--- NOTE | 2020-06-03 15:29 | NUR ---
CERTIFIED PHLEBOTOMY TECHNICIAN: PT FOUND IN MENS BATHROOM IN THE LOBBY
[2020-06-03 16:47] VITALS: BP 127/84
== END 2020-06-03 16:50 | disposition home or self-care (01) ==
LOC: ED 15:45
DX: F15.150 Other stimulant abuse with stimulant-induced psychotic disorder with delusions (principal); F31.9 Bipolar disorder, unspecified; F20.9 Schizophrenia, unspecified
CPT/HCPCS: 99281

== ENCOUNTER 2020-06-09 09:22 | Emergency (ER) | payer MEDICARE, MEDICAID ==
[~2020-06-09] VITALS: Ht 172.7 cm; Wt 74.0 kg
[2020-06-09 09:37] VITALS: BP 121/80
[2020-06-09] MEDS ORDERED: MUPIROCIN OINT 2%, 22GM TP SCH (10:30)
--- NOTE | 2020-06-09 11:28 | NUR ---
PT REDIRECTED MULTIPLE TIMES TO GET DRESSED AND DC. PT IS CURRENTLY WASHING HER HAIR IN THE SINK AND STATES SHE WILL GET DRESSED WHEN DONE.
== END 2020-06-09 11:43 | disposition home or self-care (01) ==
LOC: ED 09:50
DX: L03.115 Cellulitis of right lower limb (principal); L03.116 Cellulitis of left lower limb
CPT/HCPCS: 99282

== ENCOUNTER 2020-06-11 22:12 | Emergency (ER) | payer MEDICARE, MEDICAID ==
[~2020-06-11] VITALS: Ht 172.7 cm; Wt 72.5 kg
[2020-06-11 22:16] VITALS: BP 134/71
--- NOTE | 2020-06-11 22:21 | NUR ---
ERP evaluated patient; no medical needs at this time. Discharge instructions given. All questions and concerns addressed. Patient ambulatory with a steady gait. Belongings with patient.
== END 2020-06-11 22:21 ==
LOC: ED 22:15
DX: F15.250 Other stimulant dependence with stimulant-induced psychotic disorder with delusions (principal); F20.9 Schizophrenia, unspecified; F41.9 Anxiety disorder, unspecified; R00.0 Tachycardia, unspecified
CPT/HCPCS: 99281

== ENCOUNTER 2020-06-14 09:55 | Emergency (ER) | payer MEDICARE, MEDICAID ==
[~2020-06-14] VITALS: Ht 167.6 cm; Wt 72.0 kg
[2020-06-14 10:07] VITALS: BP 120/76
--- NOTE | 2020-06-14 10:20 | NUR ---
INITIAL PT CONTACT. PT C/O "I NEED A B12 AND B21 SHOT, I ALSO NEED AN ANAL CLEANING AND A SPECIAL HAIR TREATMENT. I HAVE BEEN SMELLING GAS SO I NEED TO HAVE ANAL CLEANING, THAT WAY I WONT SMELL THE GAS AND THIS ONE TIME I DID A CHEMO DRUG SO THATS WHY I NEED A LOT OF THIS." PT SITTING ON GURNEY WITH EYES CLOSED. CALM AND COOPERATIVE WITH STAFF, FOLLOWS COMMANDS APPROPRIATELY. PT PROVIDED BLANKET. SAFETY VALVERDE DOWN. NO ADDITIONAL NEEDS AT THIS TIME. WILL CONTINUE TO MONITOR CLOSELY.
--- NOTE | 2020-06-14 10:57 | NUR ---
PT SITTING ON GURNEY WITH EYES CLOSED. NAD. PT REFUSES REPEAT VITALS AT THIS TIME. NO ADDITIONAL NEEDS AT THIS TIME. SAFETY VALVERDE DOWN AND SAFETY PRECAUTIONS IN PLACE. WILL CONTINUE TO MONITOR.
[2020-06-14] MEDS ORDERED: ZIPRASIDONE 40MG CAPSULE PO ONE (12:00)
[2020-06-14] MEDS ORDERED: BENZTROPINE 1 MG TABLET PO ONE (12:00)
[2020-06-14] MEDS ORDERED: BENZTROPINE 1 MG TABLET ONE (12:01)
--- NOTE | 2020-06-14 12:37 | NUR ---
Patient given discharge instructions and they have confirmed that they understand the instructions. Pt refused d/c vitals. Patient ambulatory with steady gait.
== END 2020-06-14 12:40 | disposition home or self-care (01) ==
LOC: ED 10:34
DX: F15.159 Other stimulant abuse with stimulant-induced psychotic disorder, unspecified (principal); F25.9 Schizoaffective disorder, unspecified; F17.200 Nicotine dependence, unspecified, uncomplicated; Z91.14 Patient's other noncompliance with medication regimen
CPT/HCPCS: 99283

== ENCOUNTER 2020-06-17 08:36 | Emergency (ER) | payer MEDICARE, MEDICAID ==
[~2020-06-17] VITALS: Ht 172.7 cm; Wt 68.2 kg
[2020-06-17 08:40] VITALS: BP 127/62
--- NOTE | 2020-06-17 09:00 | NUR ---
PT SUPINE ON GURNEY WITH EYES CLOSED. PT CONTINUALLY TALKING TO SELF WITH FLIGHT OF IDEAS AND HAVING DIFFICULTY FORMING FLUID SENTENCES. DENIES HI/SI. PT DENIES ANY NEEDS AT THIS TIME. CALL LIGHT IN REACH.
--- NOTE | 2020-06-17 09:46 | NUR ---
PT PROVIDED FOOD TRAY, DENIES ANY ADDITIONAL NEEDS AT THIS TIME.
--- NOTE | 2020-06-17 10:03 | NUR ---
Patient given discharge instructions and they have confirmed that they understand the instructions. Patient ambulatory with steady gait.
== END 2020-06-17 10:13 | disposition home or self-care (01) ==
LOC: ED 09:41
DX: F15.159 Other stimulant abuse with stimulant-induced psychotic disorder, unspecified (principal); F20.9 Schizophrenia, unspecified; F17.200 Nicotine dependence, unspecified, uncomplicated
CPT/HCPCS: 82962; 99282

== ENCOUNTER 2020-06-27 10:09 | Emergency (ER) | payer MEDICARE, MEDICAID ==
[~2020-06-27] VITALS: Ht 162.6 cm; Wt 70.0 kg
[2020-06-27 10:13] VITALS: BP 116/85
--- NOTE | 2020-06-27 10:29 | NUR ---
PSYCH KALINA FITZPATRICK IN TO SEE PT.
== END 2020-06-27 11:17 | disposition home or self-care (01) ==
LOC: ED 10:50
DX: F41.1 Generalized anxiety disorder (principal); F98.9 Unspecified behavioral and emotional disorders with onset usually occurring in childhood and adolescence; R41.82 Altered mental status, unspecified
CPT/HCPCS: 99281

== ENCOUNTER 2020-07-08 08:46 | Emergency (ER) | payer MEDICARE, MEDICAID ==
[~2020-07-08] VITALS: Ht 162.6 cm; Wt 70.0 kg
[2020-07-08 09:14] VITALS: BP 122/68
--- NOTE | 2020-07-08 09:21 | NUR ---
PT AMBULATED WITH LOCOMOTIVE MECHANIC TO ROOM WITH A STEADY GAIT.
--- NOTE | 2020-07-08 09:23 | NUR ---
PT HAS A FLIGHT OF IDEAS AND HAS NOT SPECIFICALLY SAID WHAT BRINGS HER TO TO THE ER TODAY.
--- NOTE | 2020-07-08 09:25 | NUR ---
PT STATES LAST METH USE WAS YESTERDAY TO PA.
--- NOTE | 2020-07-08 09:27 | NUR ---
OKAY TO ORDER PT BREAKFAST PER PA.
--- NOTE | 2020-07-08 09:50 | NUR ---
BREAKFAST DELIVERED TO PT.
--- NOTE | 2020-07-08 09:53 | NUR ---
PT TO BE DISCHARGED HOME AFTER DONE WITH BREAKFAST IN A STABLE CONDITION.
--- NOTE | 2020-07-08 10:03 | NUR ---
PT AMBULATED OUT OF ED WITH A STEADY GAIT.
== END 2020-07-08 10:04 | disposition home or self-care (01) ==
LOC: ED 09:55
DX: F17.200 Nicotine dependence, unspecified, uncomplicated (principal); F15.122 Other stimulant abuse with intoxication with perceptual disturbance; R41.82 Altered mental status, unspecified; R45.1 Restlessness and agitation
CPT/HCPCS: 99281

== ENCOUNTER 2020-07-09 12:05 | Emergency (ER) | payer MEDICARE, MEDICAID ==
[~2020-07-09] VITALS: Ht 172.7 cm; Wt 68.0 kg
[2020-07-09 12:11] VITALS: BP 162/129
[2020-07-09] MEDS ORDERED: LORazepam 1MG TABLET PO ONE (12:30)
[2020-07-09] MEDS ORDERED: LORazepam 1MG TABLET ONE (12:50)
--- NOTE | 2020-07-09 13:15 | NUR ---
PT WASHING FEET IN SINK WITH IODINE, AFTER RUMMAGING THROUGH CABINETS IN RM. PT THEN TRYS TO HACK INTO COMPUTER IN RM, PT VERY FIGALAN STARKS REDIRECTABLE AT THIS TIME, PT PACING IN RM. TOLD TO NOT HACK COMPUTER OR RUMMAGE THROUGH CABINETS. BENITA FITZPATRICK IN TO [facility] PT, PT MEDICATED PER MAR
--- NOTE | 2020-07-09 14:43 | NUR ---
Patient given discharge instructions and they have confirmed that they understand the instructions. Patient ambulatory with steady gait.
== END 2020-07-09 14:44 | disposition home or self-care (01) ==
LOC: ED 13:39
DX: F20.1 Disorganized schizophrenia (principal); F41.9 Anxiety disorder, unspecified; F15.129 Other stimulant abuse with intoxication, unspecified; G89.29 Other chronic pain; Z91.14 Patient's other noncompliance with medication regimen
CPT/HCPCS: 99283

== ENCOUNTER 2020-07-10 19:24 | Emergency (ER) | payer MEDICARE, MEDICAID ==
[~2020-07-10] VITALS: Ht 167.6 cm; Wt 70.7 kg
[2020-07-10 19:44] VITALS: BP 201/164
--- NOTE | 2020-07-11 00:28 | NUR ---
not in lobby
--- NOTE | 2020-07-11 00:40 | NUR ---
ADVERTISING SALES EXECUTIVE: CALLED FOR PT. PT NOT IN LOBBY AT THIS TIME.
--- NOTE | 2020-07-11 01:01 | NUR ---
CALLED FOR PT. PT NOT IN LOBBY AT THIS TIME. THIS IS THE 3RD ATTEMPT.
== END 2020-07-11 01:03 | disposition left against medical advice (07) ==
LOC: ED 07-11 00:45
DX: F15.959 Other stimulant use, unspecified with stimulant-induced psychotic disorder, unspecified (principal); R45.1 Restlessness and agitation
CPT/HCPCS: 99281

== ENCOUNTER 2020-07-11 11:44 | Emergency (ER) | payer MEDICARE, MEDICAID ==
--- NOTE | 2020-07-11 13:00 | NUR ---
SPECIAL PROCEDURES NURSE: NIL X1
--- NOTE | 2020-07-11 13:08 | NUR ---
TUBE SKIVER: NIL X2
--- NOTE | 2020-07-11 13:12 | NUR ---
FLATBED DRIVER: [id number]
== END 2020-07-11 13:28 | disposition left against medical advice (07) ==
LOC: ED 13:22
DX: F32.9 Major depressive disorder, single episode, unspecified (principal); Z53.21 Procedure and treatment not carried out due to patient leaving prior to being seen by health care provider

== ENCOUNTER 2020-07-16 00:45 | Emergency (ER) | payer MEDICARE, MEDICAID ==
[~2020-07-16] VITALS: Ht 172.7 cm; Wt 71.0 kg
[2020-07-16 00:51] VITALS: BP 119/79
--- NOTE | 2020-07-16 03:15 | NUR ---
LEGAL COORDINATOR: PT. BEING DISRUPTIVE IN LOBBY, SHOUTING AT OTHER PATIENTS. SHOUTING AT SECUTIRY WHEN ASKED TO REMAIN IN SEAT. PT. 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 ESCORTED OUT OF ED BY SECURITY.
== END 2020-07-16 02:01 ==
LOC: ED 02:00
DX: F29 Unspecified psychosis not due to a substance or known physiological condition (principal); Z53.21 Procedure and treatment not carried out due to patient leaving prior to being seen by health care provider
CPT/HCPCS: 99281

== ENCOUNTER 2020-07-29 01:23 | Emergency (ER) | payer MEDICARE, MEDICAID ==
[~2020-07-29] VITALS: Ht 172.7 cm; Wt 73.3 kg
[2020-07-29 01:42] VITALS: BP 141/83
== END 2020-07-29 02:03 | disposition home or self-care (01) ==
LOC: ED 01:52
DX: F15.150 Other stimulant abuse with stimulant-induced psychotic disorder with delusions (principal); F25.9 Schizoaffective disorder, unspecified; F17.210 Nicotine dependence, cigarettes, uncomplicated
CPT/HCPCS: 99281; 99406

== ENCOUNTER 2020-07-29 08:22 | Emergency (ER) | payer MEDICARE, MEDICAID ==
[~2020-07-29] VITALS: Ht 175.3 cm; Wt 73.3 kg
[2020-07-29] MEDS ORDERED: hydrOXyzine 50MG TABLET ONE (08:44)
--- NOTE | 2020-07-29 08:54 | NUR ---
PT MEDICATED PER MAR
--- NOTE | 2020-07-29 08:54 | NUR ---
PT C/O NECK PAIN DUE BEING IN SWAY. PT HAVING ERRATCI THOUGHTS AND SPEECH PATTERNS. PT STATES SHE HAS TO COME TO THE HOSPPITAL EVERY DAY, NO REASON GIVEN. PT STATES SHE DID SMOKE METH THIS AM. PT
--- NOTE | 2020-07-29 09:14 | NUR ---
PT REFUSING VITAL SIGNS
--- NOTE | 2020-07-29 10:55 | NUR ---
PT LAYING ON BACK ON ED GURNEY WATCHING TV. PT DENIES ANY NEEDS AT THIS TIME.
[2020-07-29 11:25] VITALS: BP 113/75
--- NOTE | 2020-07-29 11:37 | NUR ---
PT REC'VD DISCHARGE INSTRUCTIONS AND EDUCATION. PT HAD NO FURTHER QUESTIONS ABOUT HER DISCHARGE. PT AMBULATED TO DC AREA, STEADY GAIT.
== END 2020-07-29 11:53 | disposition home or self-care (01) ==
LOC: ED 08:47
DX: F15.121 Other stimulant abuse with intoxication delirium (principal); F25.9 Schizoaffective disorder, unspecified
CPT/HCPCS: 99283; Q0177

== ENCOUNTER 2020-07-30 00:09 | Emergency (ER) | payer MEDICARE, MEDICAID ==
[~2020-07-30] VITALS: Ht 172.7 cm; Wt 73.2 kg
[2020-07-30 00:10] VITALS: BP 133/86
--- NOTE | 2020-07-30 00:41 | NUR ---
Patient/Caregiver given discharge instructions and they have confirmed that they understand the instructions. Patient ambulatory with steady gait.
--- NOTE | 2020-07-30 00:42 | NUR ---
Patient/Caregiver given discharge instructions and they have confirmed that they understand the instructions. Patient ambulatory with steady gait.
== END 2020-07-30 00:44 | disposition home or self-care (01) ==
LOC: ED 00:17
DX: F15.151 Other stimulant abuse with stimulant-induced psychotic disorder with hallucinations (principal); N93.9 Abnormal uterine and vaginal bleeding, unspecified; Z72.9 Problem related to lifestyle, unspecified
CPT/HCPCS: 99281

== ENCOUNTER 2020-08-03 15:59 | Emergency (ER) | payer MEDICARE, MEDICAID ==
[~2020-08-03] VITALS: Ht 175.3 cm; Wt 68.9 kg
[2020-08-03 16:06] VITALS: BP 127/65
--- NOTE | 2020-08-03 16:35 | NUR ---
ASSUMED CARE OF PT AT THIS TIME. FIRST CONTACT WITH PT. MERCED ELAM AT BEDSIDE FOR EVALUATION, PT AWAITING EVAL BY OLIVERIO SMITH. 30 Y/O F PRESENTS WITH RAPID, RAMBLING SPEECH, PACING IN ROOM, TALKING ABOUT "ANIMAL PLANET AND WANTING A NEW DOG, A BLUE POODLE." DENIES SI/HI "NO I DON'T WANT TO OR KILL MYSELF, NO ONE IS TALKING TO ME I JUST NEED ALL THE DOGS AND ANIMALS." PT REPORTS "USING A LOT OF METH TODAY." REFUSES TO CHANGE INTO GOWN OR HAVE BP/PULSE OX ON AT THIS TIME. PT CLEANSING HANDS WITH HYDROGEN PERIOXIDE CLEANING WIPES, WIPES REMOVED FROM ROOM, PT WASHED HANDS IN SINK. MERCED ELAM AND OLIVERIO SMITH AWARE OF WIPE USE, NO NEW ORDERS RECEIVED. PER SARAH "PT HAS DONE THAT IN PAST AND NEEDED TO SHOWER AFTER USING THEM ON HER WHOLE BODY." FALL PRECAUTIONS IN PLACE. PT ORIENTEDX4, COOPERATIVE AT THIS TIME.
--- NOTE | 2020-08-03 17:20 | NUR ---
PT UP FOR DISCHARGE, JC RN AND JESSICA RN IN TO DISCHARGE PT, PT REFUSED TO SIGN DISCHARGE PAPERS AND ALLOW DISCHARGE VITALS, MERCED ELAM AWARE, PT UNCOOPERATIVE. SECURITY CALLED AND ESCORTED PT OUT OF ER, PT WAS PROVIDED BUS PASS PER MERCED ELAM. PT AMBULATED OUT OF DEPARTMENT WITH STEADY GAIT WITH SECURITY
== END 2020-08-03 17:26 | disposition home or self-care (01) ==
LOC: ED 16:17
DX: F15.159 Other stimulant abuse with stimulant-induced psychotic disorder, unspecified (principal); R00.0 Tachycardia, unspecified; G89.29 Other chronic pain; F17.200 Nicotine dependence, unspecified, uncomplicated
CPT/HCPCS: 99281

== ENCOUNTER 2020-08-23 17:49 | Emergency (ER) | payer MEDICARE, MEDICAID ==
[~2020-08-23] VITALS: Ht 175.3 cm; Wt 78.5 kg
--- NOTE | 2020-08-23 17:55 | NUR ---
PT UNABLE TO MAKE COHERENT SENTENCES. REPORTS SHE DID METH 20MIN AGO.
--- NOTE | 2020-08-23 18:00 | NUR ---
LA PA AT BS. BRUSH MATERIAL PREPARER ALSO AT BS.
[2020-08-23] MEDS ORDERED: LORazepam 1MG TABLET ONE (18:04)
--- NOTE | 2020-08-23 18:09 | NUR ---
PT MEDICATED WITH PO ATIVAN. PACING AROUND ROOM, TRYING TO USE COMPUTER/MEDICATION SCANNER. INSTRUCTED PT TO LAY DOWN ON GURNEY AND RELAX. LIGHTS TURNED DOWN, OFFERED PT TV REMOTE.
[2020-08-23] MEDS ORDERED: LORazepam 1MG TABLET PO ONE (18:30)
[2020-08-23 18:33] VITALS: BP 111/81
--- NOTE | 2020-08-23 18:34 | NUR ---
PT WAS PACING AROUND ROOM, TYPING ON COMPUTER, TRYING TO USE MONITORING EQUIPMENT, PUTTING ON GLOVES AND PUTTING SOAP IN HER HAIR, ETC. PER ER PA AND SOLVENT RECOVERER, OKAY TO DISCHARGE PATIENT WITH RESOURCES. D/C INSTRUCTIONS, COMMUNITY RESOURCES, AND F/U PROVIDED TO PT. PT AMBULATED OUT OF ED WITHOUT DIFFICULTY.
== END 2020-08-23 18:34 | disposition home or self-care (01) ==
LOC: ED 18:28
DX: F15.150 Other stimulant abuse with stimulant-induced psychotic disorder with delusions (principal); R00.0 Tachycardia, unspecified; Z91.14 Patient's other noncompliance with medication regimen; Z72.9 Problem related to lifestyle, unspecified
CPT/HCPCS: 99283

== ENCOUNTER 2020-08-25 02:04 | Emergency (ER) | payer MEDICARE, MEDICAID ==
[~2020-08-25] VITALS: Ht 172.7 cm; Wt 77.3 kg
[2020-08-25 02:14] VITALS: BP 137/88
--- NOTE | 2020-08-25 03:15 | NUR ---
PT CALLED FOR ROOM NA X 1
--- NOTE | 2020-08-25 03:40 | NUR ---
BREAK RN; PT TO ROOM FROM LOBBY. PT ADMITS TO TAKING METH,
--- NOTE | 2020-08-25 04:00 | NUR ---
PATIENT CLEARED FOR DISCHARGE. NO NOTED ACUTE DISTRESS. PATIENT TOELRATED INTERVENTIONS WELL. AMBULATORY TO DISCHARGE IWTHOUT COMPLICATIONS. PATIENT DENIES ANY ADDITIONAL ASSISTANCE AT THIS TIME.
== END 2020-08-25 04:19 | disposition home or self-care (01) ==
LOC: ED 03:30
DX: F15.150 Other stimulant abuse with stimulant-induced psychotic disorder with delusions (principal); Z72.9 Problem related to lifestyle, unspecified; R00.0 Tachycardia, unspecified; G89.29 Other chronic pain; Z91.14 Patient's other noncompliance with medication regimen
CPT/HCPCS: 99281

== ENCOUNTER 2020-08-27 11:55 | Emergency (ER) | payer MEDICARE, MEDICAID ==
[~2020-08-27] VITALS: Ht 175.3 cm; Wt 78.8 kg
[2020-08-27 12:00] VITALS: BP 113/64
--- NOTE | 2020-08-27 12:57 | NUR ---
ramp and cargo supervisor: pt from lobby to room 12
[2020-08-27 13:19] LABS: BASOPHILS % (AUTO) 1 % (0-1); EOSINOPHILS % (AUTO) 4 % (1-7); LYMPHOCYTES % (AUTO) 20 % (22-44); MD NO; MEAN CORPUSCULAR HEMOGLOBIN 29.2 pg (27.0-34.8); MEAN CORPUSCULAR HGB CONC 33.4 g/dL (32.4-35.8); MEAN PLATELET VOLUME 7.8 fL (7.4-10.4); MONOCYTES % (AUTO) 10 % (2-9); NEUTROPHILS % (AUTO) 66 % (42-75); PLATELET COUNT 363 x10^3/uL (130-400); RED CELL DISTRIBUTION WIDTH 14.3 % (9.6-15.2)
[2020-08-27 13:33] LABS: ALBUMIN 3.8 g/dL (3.4-5.0); ANION GAP 6 mmol/L (5-15); CALCIUM 8.8 mg/dL (8.5-10.1); CHLORIDE 109 mmol/L (98-107)
[2020-08-27 13:40] LABS: ALANINE AMINOTRANSFERASE 34 U/L (12-78); ALKALINE PHOSPHATASE 88 U/L (45-117); BILIRUBIN,TOTAL 0.6 mg/dL (0.2-1.0); CREATININE 0.69 mg/dL (0.55-1.02)
[2020-08-27 13:41] LABS: SALICYLATE LEVEL < 1.7 mg/dL (2.8-20.0)
--- NOTE | 2020-08-27 13:43 | NUR ---
PT GIVEN URINE CUP. PT RETURNED CUP WITH DROPS OF BLOOD IN IT FROM PT POKING FINGER IN TOP FILL HOLE THEN SQUEZING BLOOD INTO CUP? PROVIDER NOTIFIED AND FINGER CLEANED AND BANDAGED.
== END 2020-08-27 16:04 | disposition home or self-care (01) ==
LOC: ED 13:47
DX: F29 Unspecified psychosis not due to a substance or known physiological condition (principal)
CPT/HCPCS: 36415; 80053; 80299; 80320; 80329; 84703; 85025; 99284; G0480

== ENCOUNTER 2020-08-27 22:47 | Emergency (ER) | payer MEDICARE, MEDICAID ==
[~2020-08-27] VITALS: Ht 167.6 cm; Wt 79.4 kg
[2020-08-27 22:56] VITALS: BP 118/74
--- NOTE | 2020-08-27 23:27 | NUR ---
seen by PA. patient discharged with instruction.
== END 2020-08-27 23:31 | disposition home or self-care (01) ==
LOC: ED 23:00
DX: F15.150 Other stimulant abuse with stimulant-induced psychotic disorder with delusions (principal); Z72.9 Problem related to lifestyle, unspecified; G89.29 Other chronic pain; F31.9 Bipolar disorder, unspecified; F20.9 Schizophrenia, unspecified
CPT/HCPCS: 99281

== ENCOUNTER 2020-08-30 17:20 | Emergency (ER) | payer MEDICARE, MEDICAID ==
[~2020-08-30] VITALS: Ht 175.3 cm; Wt 80.0 kg
[2020-08-30 17:25] VITALS: BP 145/82
== END 2020-08-30 17:55 | disposition home or self-care (01) ==
LOC: ED 17:40
DX: F15.151 Other stimulant abuse with stimulant-induced psychotic disorder with hallucinations (principal); F22 Delusional disorders; F17.210 Nicotine dependence, cigarettes, uncomplicated; Z72.9 Problem related to lifestyle, unspecified
CPT/HCPCS: 99281; 99406

== ENCOUNTER 2020-08-31 08:33 | Emergency (ER) | payer MEDICARE, MEDICAID ==
[~2020-08-31] VITALS: Ht 175.3 cm; Wt 76.6 kg
[2020-08-31 08:35] VITALS: BP 119/70
--- NOTE | 2020-08-31 08:45 | NUR ---
ER PROVIDER AT BEDSIDE FOR EVALUATION.
--- NOTE | 2020-08-31 08:48 | NUR ---
PATIENT WALKED BACK FROM TRIAGE WITH MULTIPLE COMPLAINTS. PATIENT WAS HERE YESTERDAY AND ADMITS TO LEAVING AND "SNORTING METH." WHEN ASKED WHY PATIENT IS IN THE EMERGENCY DEPARTMENT SHE STATES "I NEED A DOCTOR TO SIGN A FORM SAYING I'M ," AND THEN PATIENT STARTS TO RAMBLE IN BROKEN AND HURRIED PHRASES. PATIENT STATES SHE NEEDS A "B-11 SHOT." WHEN ASKED WHAT THAT IS FOR SHE STATES "A BABOON MALE HAIR LINE." UNABLE TO OBTAIN ANY PERTINENT INFORMATION FROM PATIENT, SHE GOES ON INTANGIBLE RANTS, PRESSURED SPEECH.
--- NOTE | 2020-08-31 09:11 | NUR ---
Patient given discharge instructions, patient does not verbalize understanding, just states "I need something for the back of my neck, I have a burn on the back of my neck." I offered patient an ice pack, but patient refused. Patient ambulatory with steady gait from ED, accompanied by information systems security specialist.
== END 2020-08-31 09:12 | disposition home or self-care (01) ==
LOC: ED 08:57
DX: F25.9 Schizoaffective disorder, unspecified (principal); F15.120 Other stimulant abuse with intoxication, uncomplicated; F41.9 Anxiety disorder, unspecified
CPT/HCPCS: 99281

== ENCOUNTER 2020-08-31 20:00 | Emergency (ER) | payer MEDICARE, MEDICAID ==
[~2020-08-31] VITALS: Ht 180.3 cm; Wt 90.9 kg
--- NOTE | 2020-08-31 20:04 | NUR ---
NIL X 1 WHEN CALLED FOR TRIAGE. IN BATHROOM.
[2020-08-31 20:20] VITALS: BP 124/78
== END 2020-08-31 21:31 | disposition home or self-care (01) ==
LOC: ED 20:30
DX: F25.9 Schizoaffective disorder, unspecified (principal); B85.0 Pediculosis due to Pediculus humanus capitis; F15.10 Other stimulant abuse, uncomplicated
CPT/HCPCS: 99282

== ENCOUNTER 2020-09-02 19:23 | Emergency (ER) | payer MEDICARE, MEDICAID ==
[~2020-09-02] VITALS: Ht 175.3 cm; Wt 76.1 kg
[2020-09-02 19:25] VITALS: BP 129/79
[2020-09-02] MEDS ORDERED: LORazepam 1MG TABLET PO ONE (20:30)
[2020-09-02] MEDS ORDERED: LORazepam 1MG TABLET ONE (20:44)
== END 2020-09-02 20:55 | disposition home or self-care (01) ==
LOC: ED 19:45
DX: F20.0 Paranoid schizophrenia (principal); Z72.9 Problem related to lifestyle, unspecified
CPT/HCPCS: 99283

== ENCOUNTER 2020-09-04 12:26 | Emergency (ER) | payer MEDICARE, MEDICAID ==
[~2020-09-04] VITALS: Ht 175.3 cm; Wt 75.8 kg
[2020-09-04 13:27] LABS: BASOPHILS % (AUTO) 1 % (0-1); EOSINOPHILS % (AUTO) 3 % (1-7); LYMPHOCYTES % (AUTO) 26 % (22-44); MEAN CORPUSCULAR HEMOGLOBIN 29.3 pg (27.0-34.8); MEAN CORPUSCULAR HGB CONC 33.3 g/dL (32.4-35.8); MEAN PLATELET VOLUME 7.1 fL (7.4-10.4); MONOCYTES % (AUTO) 8 % (2-9); NEUTROPHILS % (AUTO) 63 % (42-75); PLATELET COUNT 414 x10^3/uL (130-400); RED BLOOD COUNT 4.45 x10^6/uL (3.82-5.3); RED CELL DISTRIBUTION WIDTH 14.2 % (9.6-15.2)
[2020-09-04 13:28] LABS: MD NO
[2020-09-04] MEDS ORDERED: LORazepam 1MG TABLET ONE (13:30)
[2020-09-04] MEDS ORDERED: OLANZAPINE 10 MG TABLET ONE (13:30)
[2020-09-04] MEDS ORDERED: LORazepam 1MG TABLET PO ONE (13:30)
[2020-09-04] MEDS ORDERED: OLANZAPINE ODT 10MG PO ONE (13:30)
[2020-09-04 13:34] LABS: ALANINE AMINOTRANSFERASE 25 U/L (12-78); ALBUMIN 3.6 g/dL (3.4-5.0); ANION GAP 6 mmol/L (5-15); CALCIUM 8.8 mg/dL (8.5-10.1); CHLORIDE 107 mmol/L (98-107); CREATININE 0.73 mg/dL (0.55-1.02); SALICYLATE LEVEL < 1.7 mg/dL (2.8-20.0)
[2020-09-04 13:36] LABS: ALKALINE PHOSPHATASE 85 U/L (45-117); BILIRUBIN,TOTAL 0.2 mg/dL (0.2-1.0); TOTAL PROTEIN 7.8 g/dL (6.4-8.2)
--- NOTE | 2020-09-04 13:53 | NUR ---
PT UPRIGHT ON GURNEY AWAKE & RESTLESS, TOUCHING COMPUTER & RUMMAGING THROUGH CABINETS, PT VERBALIZED UNDERSTANDING OF REMAINING ON GURNEY & NOT TOUCHING EQUIPMENT/SUPPLIES; PT MEDICATED PER EMAR, NAD, COMFORT MEASURES PROVIDED, CALL LIGHT WITHIN REACH.
[2020-09-04 15:16] LABS: AMPHETAMINE SCREEN, URINE Positive (Negative); BARBITURATE SCREEN, URINE Negative (Negative); BENZODIAZEPINE SCREEN, URINE Negative (Negative); CANNABINOID SCREEN, URINE Negative (Negative); COCAINE SCREEN, URINE Negative (Negative); METHADONE SCREEN, URINE Negative (Negative); OPIATE SCREEN, URINE Negative (Negative)
--- NOTE | 2020-09-04 15:30 | NUR ---
PT CALMLY LAYING ON GURNEY WITH EYES CLOSED, NAD, NO NEEDS AT THIS TIME, CALL LIGHT WITHIN REACH.
--- NOTE | 2020-09-04 17:05 | NUR ---
PT CONTINUES TO CALMLY LAY ON GURNEY WITH EYES CLOSED, NAD, NO NEEDS AT THIS TIME, CALL LIGHT WITHIN REACH.
--- NOTE | 2020-09-04 18:01 | NUR ---
PT LAYING ON GURNEY WITH EYES CLOSED BUT CINTUES TO TRY TO USE COMPUTER IN ROOM & RUMMAGING THROUGH CABINETS, PT VERBALIZED UNDERSTANDING OF REMAINING ON GURNEY & NOT TOUCHING EQUIPMENT/SUPPLIES; PT GIVEN FOOD TRAY- NO OTHER NEEDS AT THIS TIME, CALL LIGHT WITHIN REACH.
[2020-09-04 18:15] VITALS: BP 115/74
--- NOTE | 2020-09-04 18:41 | NUR ---
PT AMBULATORY W/ STEADY GAIT. PT DENIES SI/HI. AOX4. PT PROVIDED W/ BUS PASS, DC APPERWORK AND TO GO DINNER TRAY.
== END 2020-09-04 18:43 | disposition home or self-care (01) ==
LOC: ED 13:57
DX: F15.10 Other stimulant abuse, uncomplicated (principal); F22 Delusional disorders; F17.200 Nicotine dependence, unspecified, uncomplicated
CPT/HCPCS: 36415; 80053; 80299; 80307; 80320; 80329; 84703; 85025; 99285; G0480

== ENCOUNTER 2020-09-05 06:39 | Emergency (ER) | payer MEDICAID, MEDICARE ==
[~2020-09-05] VITALS: Ht 170.2 cm; Wt 75.6 kg
[2020-09-05 06:44] VITALS: BP 132/71
--- NOTE | 2020-09-05 07:00 | NUR ---
PT IS A 30F WHO COMES IN DISORIENTED WITH TANGENITAL SPEACH. SHE DENIES SI OR HOMICIDAL THOUGHTS TODAY. STATES SHE USED [facility] LAST NIGHT. WAS SEEN HERE YESTERDAY. IT IS UNCLEAR TO ME THE REASON SHE IS HERE TODAY. DENIES THE NEED FOR A BLANKET, ASKS TO USE A WIPE TO WIPE DOWN HER BODY. PROVIDER AT BEDSIDE. CALL LIGHT WITHIN REACH.
--- NOTE | 2020-09-05 07:23 | NUR ---
PT TRYING TO USE COMPUTER AND TURNED ON ALL THE SUCTION. ADVISED THE PT SHE CANNOT TOUCH ANY EQUIPMENT IN THE ROOM. ALSO FOUND THE PATIENT SCRUBBING HERSELF WITH A HYDROGEN PEROXIDE BED CLEANING WIPE.
--- NOTE | 2020-09-05 07:47 | NUR ---
Patient/Caregiver given discharge instructions. Patient ambulatory with steady gait.
== END 2020-09-05 07:50 | disposition home or self-care (01) ==
LOC: ED 07:34
DX: F15.10 Other stimulant abuse, uncomplicated (principal); F25.9 Schizoaffective disorder, unspecified; F22 Delusional disorders
CPT/HCPCS: 99281

== ENCOUNTER 2020-09-05 22:38 | Emergency (ER) | payer MEDICARE, MEDICAID ==
[~2020-09-05] VITALS: Ht 167.6 cm; Wt 75.2 kg
[2020-09-05 22:42] VITALS: BP 122/80
--- NOTE | 2020-09-06 | NUR ---
CALLED FOR PT. PT NOT IN LOBBY.
--- NOTE | 2020-09-06 00:20 | NUR ---
PER ER DOOR SITTER - PT WAS ASKED TO SIT IN A CHAIR AND AFTER PACING A FEW MORE MINUTES, PT LEFT.
--- NOTE | 2020-09-06 00:36 | NUR ---
PT NOT IN LOBBY. PER ER DOOR SITTER SHE HAS NOT SEEN THE PATIENT RETURN SINCE LEAVING.
== END 2020-09-06 00:39 | disposition left against medical advice (07) ==
LOC: ED 09-06 00:10
DX: F32.9 Major depressive disorder, single episode, unspecified (principal); Z53.21 Procedure and treatment not carried out due to patient leaving prior to being seen by health care provider

== ENCOUNTER 2020-09-07 00:20 | Emergency (ER) | payer MEDICARE, MEDICAID ==
--- NOTE | 2020-09-07 00:31 | NUR ---
ATTEMPTED TO CALL PT FROM LOBBY TO TRIAGE X 1. PT NIL X 1
--- NOTE | 2020-09-07 00:36 | NUR ---
ATTEMPTED TO CALL PT FROM LOBBY TO TRIAGE X 2. PT NIL X 2
--- NOTE | 2020-09-07 00:41 | NUR ---
ATTEMPTED TO CALL PT FROM LOBBY TO TRIAGE X 3. PT NIL X 3
== END 2020-09-07 00:43 | disposition left against medical advice (07) ==
LOC: ED 00:23
DX: F09 Unspecified mental disorder due to known physiological condition (principal); Z53.21 Procedure and treatment not carried out due to patient leaving prior to being seen by health care provider

== ENCOUNTER 2020-09-22 13:46 | Emergency (ER) | payer MEDICARE, MEDICAID ==
[~2020-09-22] VITALS: Ht 175.3 cm; Wt 73.0 kg
== END 2020-09-22 14:25 | disposition home or self-care (01) ==
LOC: ED 14:15
DX: F20.9 Schizophrenia, unspecified (principal); F15.10 Other stimulant abuse, uncomplicated
CPT/HCPCS: 99284

== ENCOUNTER 2020-09-26 14:26 | Emergency (ER) | payer MEDICARE, MEDICAID ==
[~2020-09-26] VITALS: Ht 175.3 cm; Wt 75.0 kg
[2020-09-26 14:53] VITALS: BP 117/75
--- NOTE | 2020-09-26 15:16 | NUR ---
PT NOT IN ROOM
== END 2020-09-26 15:23 | disposition left against medical advice (07) ==
LOC: ED 15:03
DX: F15.122 Other stimulant abuse with intoxication with perceptual disturbance (principal); F22 Delusional disorders; F17.200 Nicotine dependence, unspecified, uncomplicated
CPT/HCPCS: 99281

== ENCOUNTER 2020-09-28 23:28 | Emergency (ER) | payer MEDICARE, MEDICAID ==
[~2020-09-28] VITALS: Ht 175.3 cm; Wt 75.2 kg
[2020-09-28 23:31] VITALS: BP 139/78
--- NOTE | 2020-09-28 23:40 | NUR ---
SEEN AND EXAMINED BY ERP. PATIENT DISCHARGED WITH INSTRUCTION.
== END 2020-09-28 23:42 | disposition home or self-care (01) ==
LOC: ED 23:35
DX: F15.10 Other stimulant abuse, uncomplicated (principal); Z72.9 Problem related to lifestyle, unspecified; F17.210 Nicotine dependence, cigarettes, uncomplicated; G89.29 Other chronic pain; F25.9 Schizoaffective disorder, unspecified
CPT/HCPCS: 99281; 99406

== ENCOUNTER 2020-10-05 10:41 | Emergency (ER) | payer MEDICARE, MEDICAID ==
[~2020-10-05] VITALS: Ht 172.7 cm; Wt 74.4 kg
--- NOTE | 2020-10-05 11:37 | NUR ---
CHARLEY HERNANDEZ AT BEDSIDE FOR EVALUATION. NANETTE AVERY NP AT BEDSIDE FOR EVALUATION. JUICE PROVIDED.
[2020-10-05 11:39] VITALS: BP 126/71
--- NOTE | 2020-10-05 12:21 | NUR ---
DISCHARGE INSTRUCTIONS REVIEWED
== END 2020-10-05 12:24 | disposition home or self-care (01) ==
LOC: ED 12:07
DX: M79.674 Pain in right toe(s) (principal)
CPT/HCPCS: 99281

== ENCOUNTER 2020-10-06 03:20 | Emergency (ER) | payer MEDICARE, MEDICAID ==
[~2020-10-06] VITALS: Ht 175.3 cm; Wt 74.0 kg
[2020-10-06 03:22] VITALS: BP 92/67
== END 2020-10-06 03:44 | disposition home or self-care (01) ==
LOC: ED 03:35
DX: S70.311A Abrasion, right thigh, initial encounter (principal); G89.29 Other chronic pain; F17.210 Nicotine dependence, cigarettes, uncomplicated; X58.XXXA Exposure to other specified factors, initial encounter; Y93.89 Activity, other specified; Y92.89 Other specified places as the place of occurrence of the external cause; Y99.8 Other external cause status
CPT/HCPCS: 99281; 99406

== ENCOUNTER 2020-10-06 23:00 | Emergency (ER) | payer MEDICARE, MEDICAID ==
[~2020-10-06] VITALS: Ht 175.3 cm; Wt 73.8 kg
[2020-10-06 23:04] VITALS: BP 128/97
== END 2020-10-06 23:22 | disposition home or self-care (01) ==
LOC: ED 23:10
DX: F41.1 Generalized anxiety disorder (principal); F17.210 Nicotine dependence, cigarettes, uncomplicated; Z72.9 Problem related to lifestyle, unspecified; F31.9 Bipolar disorder, unspecified; F20.9 Schizophrenia, unspecified; R00.0 Tachycardia, unspecified; Z88.3 Allergy status to other anti-infective agents
CPT/HCPCS: 99281; 99406

== ENCOUNTER 2020-10-07 19:41 | Emergency (ER) | payer MEDICARE, MEDICAID ==
[~2020-10-07] VITALS: Ht 175.3 cm; Wt 75.0 kg
[2020-10-07 20:21] VITALS: BP 132/85
--- NOTE | 2020-10-07 20:21 | NUR ---
Patient given discharge instructions and they have confirmed that they understand the instructions. Patient ambulatory with steady gait.
== END 2020-10-07 20:19 | disposition home or self-care (01) ==
LOC: ED 20:00
DX: F15.10 Other stimulant abuse, uncomplicated (principal); Z72.9 Problem related to lifestyle, unspecified; G89.29 Other chronic pain
CPT/HCPCS: 99281

== ENCOUNTER 2020-10-11 06:57 | Emergency (ER) | payer MEDICARE, MEDICAID ==
[~2020-10-11] VITALS: Ht 154.9 cm; Wt 73.8 kg
[2020-10-11 07:01] VITALS: BP 99/88
[2020-10-11] MEDS ORDERED: OLANZAPINE ODT 10MG PO ONE (07:30)
--- NOTE | 2020-10-11 08:15 | NUR ---
REPORT FROM LAVERNE ARCE AT 0715. PT MEDICATED PER ERP ORDER. HR AND PULSE OX RECHECKED/UPDATED IN COMPUTER. PT COOPERATIVE WITH CARE. PT TALKING TO SELF, RAMBLING SPEECH.
== END 2020-10-11 09:02 | disposition home or self-care (01) ==
LOC: ED 07:21
DX: F33.3 Major depressive disorder, recurrent, severe with psychotic symptoms (principal); F15.10 Other stimulant abuse, uncomplicated; R06.02 Shortness of breath
CPT/HCPCS: 71045; 99283

== ENCOUNTER 2020-10-21 03:49 | Emergency (ER) | payer MEDICAID, MEDICARE ==
[~2020-10-21] VITALS: Ht 175.3 cm; Wt 73.3 kg
[2020-10-21 03:51] VITALS: BP 115/74
== END 2020-10-21 05:20 | disposition home or self-care (01) ==
LOC: ED 04:45
DX: F15.150 Other stimulant abuse with stimulant-induced psychotic disorder with delusions (principal); R00.0 Tachycardia, unspecified; F20.9 Schizophrenia, unspecified; Z91.19 Patient's noncompliance with other medical treatment and regimen
CPT/HCPCS: 99281